=== PATIENT | female | born 1970 | race African-American/Black ===

== ENCOUNTER 2017-04-16 16:42 | Inpatient (IN) | payer OTHER ==
[~2017-04-16] VITALS: Ht 167.6 cm; Wt 80.7 kg
[~2017-04-16 16:42] MED LIST: AMLODIPINE BESY10 MG ORAL; IBUPROFEN600 MG PO; LISINOPRIL10 MG ORAL; NKM; NORCO 5-325 TA1 EACH ORAL; PROTONIX20 MG ORAL; THIAMINE HCL100 MG ORAL; VICODIN 5-5001 EACH PO; [UNRECOGNIZED DRUG - REMARK]
[2017-04-16] MEDS ORDERED: Morphine Sulfate 4mg/ml Inj IVP ONE ×2 (17:15→19:15)
[2017-04-16 18:11] LABS: BASOPHILS % (AUTO) 1.2 % (0.0-2.0); EOSINOPHILS % (AUTO) 0.1 % (0.0-3.0); MEAN CORPUSCULAR HEMOGLOBIN 33.2 PG (27.0-31.0); MEAN CORPUSCULAR HGB CONC 31.3 G/DL (32.0-36.0); MEAN CORPUSCULAR VOLUME 106 FL (80-99); MEAN PLATELET VOLUME 6.7 FL (6.5-10.1); MONOCYTES % (AUTO) 5.4 % (1.0-10.0); NEUTROPHILS % (AUTO) 81.3 % (45.0-75.0); PLATELET COUNT 225 K/UL (150-450); RED BLOOD COUNT 4.34 M/UL (4.20-5.40); RED CELL DISTRIBUTION WIDTH 16.3 % (11.6-14.8); WHITE BLOOD COUNT 7.6 K/UL (4.8-10.8)
[2017-04-16 18:20] LABS: INR 0.9 (0.9-1.1); PROTHROMBIN TIME 9.7 SEC (9.30-11.50)
[2017-04-16 18:31] LABS: ALANINE AMINOTRANSFERASE 31 U/L (3-33); ANION GAP 16 (5-15); ASPARTATE AMINO TRANSFERASE 35 U/L (5-40); CALCIUM 9.2 mg/dL (8.6-10.2); CARBON DIOXIDE 22 mEQ/L (20-30); CHLORIDE 94 mEQ/L (98-107); CREATININE 0.8 mg/dL (0.5-0.9); GLOMERULAR FILTRATION RATE > 60 mL/min (>60); HEMOLYSIS 13; POTASSIUM 3.3 mEQ/L (3.4-4.9); SODIUM 132 mEQ/L (135-145); TOTAL PROTEIN 7.8 g/dL (6.6-8.7)
[2017-04-16 18:42] LABS: LIPASE > 300 U/L (< 60)
[2017-04-16 18:53] LABS: BILIRUBIN,DIRECT 0.3 mg/dL (0.1-0.3)
[2017-04-16 19:05] VITALS: BP 126/81
[2017-04-16 19:49] LABS: APPEARANCE,URINE CLEAR; KETONES,URINE NEGATIVE (NEGATIVE); LEUKOCYTE ESTERASE ,URINE 1+ (NEGATIVE); NITRITE,URINE NEGATIVE (NEGATIVE); PH,URINE 7 (4.5-8.0); PROTEIN,URINE NEGATIVE (NEGATIVE); UROBILINOGEN,URINE NORMAL MG/DL (0.0-1.0)
[2017-04-16 20:01] LABS: BACTERIA,URINE FEW /HPF; SQUAMOUS EPITHELIAL CELL,UR MODERATE /LPF (NONE/OCC); WBC,URINE 0-2 /HPF (0 - 2)
[2017-04-16] MEDS ORDERED: AMBIEN5 MG ORAL (21:07)
[2017-04-16] MEDS ORDERED: Miralax 17gm pkt ORAL PRN (21:30)
[2017-04-16] MEDS ORDERED: Morphine Sulfate 2mg/ml Inj IVP PRN (21:30)
[2017-04-16] MEDS ORDERED: Morphine Sulfate 4mg/ml Inj IVP PRN (21:30)
[2017-04-16] MEDS ORDERED: HYDROmorphone 1mg/ml Carpuject IVP ONE (21:45)
[2017-04-16 22:10] VITALS: BP 109/72
[2017-04-16] MEDS: NS w/KCl 20mEq 1,000 ML IV SCH (22:57)
[2017-04-16] MEDS ORDERED: Hydromorphone 0.5mg/0.5ml inj IVP PRN (23:15)
[2017-04-17] VITALS (7 sets, daily range): BP systolic 96–120; BP diastolic 65–74
--- NOTE | 2017-04-17 00:04 | Emergency Room Report ---
History of Present Illness General Chief Complaint: Abdominal Pain Source: Patient Present Illness HPI The patient is a 46 old female presenting for abdominal pain. She states that she was diagnosed with pancreatitis 8 months prior for no known reason. She states that she had followup appointments but did not comply. She states that she was not having any pain until yesterday which is now described as a 10 out of 10 dull ache to the mid upper abdomen and does not radiate. No known provoking or relieving factors. She does admit to nausea but denies vomiting. She denies fever chills Allergies: Coded Allergies: No Known Allergies (Unverified , 05/13/13) Patient History Past Medical History: see triage record Pertinent Family History: none Reviewed Nursing Documentation: PMH: Agreed, PSxH: Agreed Nursing Documentation-PMH Hx Cardiac Problems: No Hx Hypertension: Yes Hx Cancer: Yes - Lung (Dad) Hx Gastrointestinal Problems: Yes Hx Neurological Problems: No Review of Systems All Other Systems: negative except mentioned in HPI Physical Exam Vital Signs Date Time Temp Pulse Resp B/P (MAP) Pulse Ox O2 Delivery O2 Flow Rate FiO2 04/16/17 16:51 98.1 124 20 126/81 97 Room Air Sp02 EP Interpretation: reviewed, normal General Appearance: no apparent distress, alert, GCS 15, non-toxic Head: normocephalic, atraumatic Eyes: bilateral eye normal inspection, bilateral eye PERRL ENT: hearing grossly normal, normal pharynx, no angioedema, normal voice Neck: full range of motion, supple/symm/no masses Respiratory: chest non-tender, lungs clear, normal breath sounds, speaking full sentences Gastrointestinal: normal inspection, normal bowel sounds, no guarding, tenderness - epigastric Rectal: deferred Musculoskeletal: back normal, gait/station normal, normal range of motion, non- tender Neurologic: alert, oriented x3, responsive, motor strength/tone normal, sensory intact, speech normal Psychiatric: judgement/insight normal, memory normal, mood/affect normal, no suicidal/homicidal ideation Skin: normal color, no rash, warm/dry, well hydrated Medical Decision Making PA Attestation Dr. Chowdhury is my supervising physician. Patient management was discussed with my supervising physician Diagnostic Impression: Primary Impression: Pancreatitis Qualified Codes: K85.90 - Acute pancreatitis without necrosis or infection, unspecified ER Course The patient is a 46 old female presenting for abdominal pain Differential diagnoses considered include but not limited to gastritis, pancreatitis, appendicitis, UTI, peptic ulcer, among others PE: Afebrile. NAD RRR Lungs CTA bilat Abd is soft. Normal BS. Non distended. TTP over epigastric region only CT and labs consistent with acute pancreatitis. Pt is given IV fluids and pain medications She will be admitted for pancreatitis Laboratory Tests Test 04/16/17 17:50 04/16/17 19:08 White Blood Count 7.6 K/UL (4.8-10.8) Red Blood Count 4.34 M/UL (4.20-5.40) Hemoglobin 14.4 G/DL (12.0-16.0) Hematocrit 45.9 % (37.0-47.0) Mean Corpuscular Volume 106 FL (80-99) H Mean Corpuscular Hemoglobin 33.2 PG (27.0-31.0) H Mean Corpuscular Hemoglobin Concent 31.3 G/DL (32.0-36.0) L Red Cell Distribution Width 16.3 % (11.6-14.8) H Platelet Count 225 K/UL (150-450) Mean Platelet Volume 6.7 FL (6.5-10.1) Neutrophils (%) (Auto) 81.3 % (45.0-75.0) H Lymphocytes (%) (Auto) 12.0 % (20.0-45.0) L Monocytes (%) (Auto) 5.4 % (1.0-10.0) Eosinophils (%) (Auto) 0.1 % (0.0-3.0) Basophils (%) (Auto) 1.2 % (0.0-2.0) Prothrombin Time 9.7 SEC (9.30-11.50) Prothrombin Time INR 0.9 (0.9-1.1) PTT 32 SEC (23-33) Sodium Level 132 mEQ/L (135-145) L Potassium Level 3.3 mEQ/L (3.4-4.9) L Chloride Level 94 mEQ/L (98-107) L Carbon Dioxide Level 22 mEQ/L (20-30) Anion Gap 16 (5-15) H Blood Urea Nitrogen 8 mg/dL (7-23) Creatinine 0.8 mg/dL (0.5-0.9) Estimate Glomerular Filtration Rate > 60 mL/min (>60) Glucose Level 124 mg/dL (74-106) H Calcium Level 9.2 mg/dL (8.6-10.2) Total Bilirubin 1.4 mg/dL (0.0-1.2) H Direct Bilirubin 0.3 mg/dL (0.1-0.3) Aspartate Amino Transferase (AST) 35 U/L (5-40) Alanine Aminotransferase (ALT) 31 U/L (3-33) Alkaline Phosphatase 108 U/L (35-104) H Total Protein 7.8 g/dL (6.6-8.7) Albumin 4.0 g/dL (3.5-5.2) Globulin 3.8 g/dL Albumin/Globulin Ratio 1.0 (1.0-2.7) Lipase > 300 U/L (< 60) H Urine Color Pale yellow Urine Appearance Clear Urine pH 7 (4.5-8.0) Urine Specific [place] 1.005 (1.005-1.035) Urine Protein Negative (NEGATIVE) Urine Glucose (UA) Negative (NEGATIVE) Urine Ketones Negative (NEGATIVE) Urine Occult Blood 1+ (NEGATIVE) H Urine Nitrite Negative (NEGATIVE) Urine Bilirubin Negative (NEGATIVE) Urine Urobilinogen Normal MG/DL (0.0-1.0) Urine Leukocyte Esterase 1+ (NEGATIVE) H Urine RBC 2-4 /HPF (0 - 2) H Urine WBC 0-2 /HPF (0 - 2) Urine Squamous Epithelial Cells Moderate /LPF (NONE/OCC) H Urine Bacteria Few /HPF (NONE) Lab Results Impression Consistent with acute pancreatitis Chest X-Ray Diagnostic Results Chest X-Ray Diagnostic Results : Chest X-Ray Ordered: Yes # of Views/Limited/Complete: 1 View Indication: Other - abd pain EP Interpretation: Yes Interpretation: no consolidation, no effusion, no pneumothorax, no acute cardiopulmonary disease Impression: No acute disease Electronically Signed by: CAMERON Landrum Scribe Text My and my supervising physician's interpretation of the chest xrays are there is no consolidation, no effusion, no acute cardiopulmonary disease, no pneumothorax CT/MRI/US Diagnostic Results CT/MRI/US Diagnostic Results : Imaging Test Ordered: CT abd/pelvis Impression acute pancreatitis Last Vital Signs Date Time Temp Pulse Resp B/P (MAP) Pulse Ox O2 Delivery O2 Flow Rate FiO2 04/16/17 22:25 98.5 04/16/17 22:15 109 20 109/72 97 Room Air Status: improved Disposition: ADMITTED INPATIENT Condition: Stable Referrals: [facility] (PCP) JESSICA HEAD Apr 17, 2017 00:04
[2017-04-17] MEDS ORDERED: Hydromorphone 0.5mg/0.5ml inj IVP PRN ×2 (00:30→10:30)
[2017-04-17] MEDS: NS w/KCl 20mEq 1,000 ML IV SCH ×3 (06:30→23:29)
[2017-04-17 08:52] LABS: BASOPHILS % (AUTO) 0.4 % (0.0-2.0); EOSINOPHILS % (AUTO) 0.4 % (0.0-3.0); LYMPHOCYTES % (AUTO) 11.4 % (20.0-45.0); MEAN CORPUSCULAR HEMOGLOBIN 33.5 PG (27.0-31.0); MEAN CORPUSCULAR HGB CONC 31.7 G/DL (32.0-36.0); MEAN CORPUSCULAR VOLUME 106 FL (80-99); MEAN PLATELET VOLUME 6.6 FL (6.5-10.1); MONOCYTES % (AUTO) 5.5 % (1.0-10.0); NEUTROPHILS % (AUTO) 82.2 % (45.0-75.0); PLATELET COUNT 202 K/UL (150-450); RED BLOOD COUNT 3.63 M/UL (4.20-5.40); RED CELL DISTRIBUTION WIDTH 16.5 % (11.6-14.8); WHITE BLOOD COUNT 6.5 K/UL (4.8-10.8)
[2017-04-17] MEDS: Heparin 5000 units/ml inj SUBQ SCH ×2 (09:00→20:10)
[2017-04-17 09:08] LABS: ALANINE AMINOTRANSFERASE 19 U/L (3-33); ANION GAP 15 (5-15); ASPARTATE AMINO TRANSFERASE 23 U/L (5-40); CALCIUM 8.3 mg/dL (8.6-10.2); CARBON DIOXIDE 22 mEQ/L (20-30); CHLORIDE 100 mEQ/L (98-107); CREATININE 0.7 mg/dL (0.5-0.9); GLOMERULAR FILTRATION RATE > 60 mL/min (>60); HEMOLYSIS 3; MAGNESIUM 1.7 mg/dL (1.7-2.5); POTASSIUM 3.7 mEQ/L (3.4-4.9); SODIUM 137 mEQ/L (135-145); TOTAL PROTEIN 6.4 g/dL (6.6-8.7)
[2017-04-17] MEDS: Docusate 100mg cap ORAL SCH ×2 (09:08→20:04)
[2017-04-17] MEDS: Pantoprazole Inj IV SCH (09:08)
[2017-04-17] MEDS ORDERED: Hydromorphone 0.5mg/0.5ml inj IVP ONE (10:55)
--- NOTE | 2017-04-17 12:08 | Diagnostic Imaging Report ---
Indication: Abdominal pain Comparison: CT chest abdomen pelvis on 10/19/2015 Technique: Contiguous helical CT images through the abdomen and pelvis was performed with intravenous contrast only. No oral contrast. Axial, coronal and sagittal reconstructions were reformatted. CT Dose: Total DLP: 860 mGycm; Total CTDI volume 16.6 Findings: There is some mild fatty infiltration of liver, unchanged. Gallbladder is normal. No radiopaque gallstones are seen. Spleen is normal. No hydronephrosis. Small renal cysts are seen. There is evidence of acute pancreatitis with inflammation changes and fluid surrounding the pancreas. No pseudocysts. No abscess. No hemorrhage. Portal vein is patent. No evidence of bowel obstruction. Appendix is normal. No free air. Atherosclerotic calcifications of the distal dominant aorta and iliac arteries are noted. In the pelvis, urinary bladder is normal. No free fluid. Small umbilical hernia is noted. Bones are unremarkable. Lung bases are clear. IMPRESSION: Acute pancreatitis Fatty liver, unchanged Multiple small renal cysts Small umbilical hernia
--- NOTE | 2017-04-17 12:18 | Diagnostic Imaging Report ---
Indication: PAIN Comparison: 10/19/2015 chest one view Findings: Single view of the chest shows a normal cardiomediastinal silhouette. Pulmonary vasculature is normal. Lung are clear. Soft tissues and osseous structures are within normal limits. Bibasilar atelectasis is noted. Impression: No acute chest disease
[2017-04-17] MEDS: Fleet's Enema 133ml RECTAL PRN (13:51)
--- NOTE | 2017-04-17 15:45 | History and Physical ---
History of Present Illness General Date patient seen: Apr 17, 2017 Time patient seen: 15:45 Reason for Hospitalization: Abdominal Pain Present Illness HPI 46y/o female with pmh of HTN, recurrent pancreatitis presents with abd pain. Pt states she was diagnosed w/ pancreatitis initially abt 1 year ago and last episode was 6 months ago. She describes epigastric and back pain, 10/10 dull pain. Associated w/ nausea, but denies vomiting. Has not been eating much 2/2 pain. Denies alcohol use or h/o gallstones. Denies f/c, dysuria, chest pain, SOB. Notes no BM since Wed. In ED, pt noted to have elevated lipase >[address] a/p showing acute pancreatitis. Also w/ ANANTH, hyponatremia and hypokalemia. Allergies: Coded Allergies: No Known Allergies (Unverified , 05/13/13) Medication History Scheduled Amlodipine Besylate* (Amlodipine Besylate*), 10 MG ORAL DAILY Hydrocodone Bit/Acetaminophen 5-325* (Slaughter 5-325*), 1 TAB ORAL Q6H Hydrocodone/Acetaminophen 5-500 (Vicodin 5-500), 1 TAB PO Q8H Ibuprofen* (Motrin*), 600 MG PO TID Lisinopril* (Lisinopril*), 20 MG ORAL DAILY, (Reported) Pantoprazole Sodium (Protonix), 20 MG ORAL EVERY 12 HOURS Thiamine Hcl (Vitamin B1*), 100 MG ORAL DAILY Scheduled PRN Zolpidem Tartrate* (Ambien*), 5 MG ORAL BEDTIME PRN for Insomnia, (Reported) Patient History History Provided By: Patient, Medical Record, PMD Healthcare decision maker Resuscitation status Full Code Advanced Directive on File Past Medical/Surgical History Past Medical/Surgical History: (1) Hypertension (2) Pancreatitis Family History Family History: Patient reports no known family medical history. Social History Social History: (1) Cigar smoker Review of Systems Constitutional: Reports: weakness Eye: Reports: no symptoms ENT: Reports: no symptoms Respiratory: Reports: no symptoms Cardiovascular: Reports: no symptoms Gastrointestinal: Reports: abdominal pain, constipation, nausea Genitourinary: Reports: no symptoms Musculoskeletal: Reports: no symptoms Skin: Reports: no symptoms Psychiatric: Reports: no symptoms Neurological: Reports: no symptoms Endocrine: Reports: no symptoms Hematologic/Lymphatic: Reports: no symptoms Physical Exam Physical Exam Narrative General: alert, cooperative, no distress, appears stated age Head: normocephalic, without obvious abnormality, atraumatic Eyes: conjunctivae/corneas clear. PERRL, EOM's intact Throat: lips, mucosa, and tongue normal. MMM Neck: supple, symmetrical, trachea midline, and no JVD Lungs: clear to auscultation bilaterally Heart: regular rate and rhythm, S1, S2 normal, no murmur, click, rub or gallop Abdomen: soft, +TTP of epigastric pain, on-distended, bowel sounds normal; no masses or organomegaly Extremities: extremities normal, atraumatic, no cyanosis or edema Pulses: 2+ and symmetric Skin: skin color, texture, turgor normal; no rashes or lesions Neurologic: grossly normal, no focal deficits Last 24 Hour Vital Signs Date Time Temp Pulse Resp B/P (MAP) Pulse Ox O2 Delivery O2 Flow Rate FiO2 04/17/17 12:00 98.1 111 18 106/71 96 Room Air 04/17/17 09:00 98.1 112 19 117/67 96 Room Air 04/17/17 08:02 98.2 112 20 117/73 97 Room Air 04/17/17 04:00 98.4 100 20 96/65 97 Room Air 04/17/17 00:54 98.2 109 19 99/65 98 Room Air 04/16/17 22:25 98.5 04/16/17 22:15 98.5 109 20 109/72 97 Room Air 04/16/17 22:10 98.5 109 20 109/72 97 Room Air 04/16/17 19:18 98.1 04/16/17 19:18 98.1 04/16/17 19:05 98.1 72 20 126/81 97 Room Air 04/16/17 16:51 98.1 124 20 126/81 97 Room Air Intake and Output 04/17/17 04/18/17 19:00 07:00 Intake Total 1000 ml Balance 1000 ml IV Total 1000 ml Laboratory Tests Test 04/16/17 17:50 04/16/17 19:08 04/17/17 07:00 White Blood Count 7.6 K/UL (4.8-10.8) 6.5 K/UL (4.8-10.8) Red Blood Count 4.34 M/UL (4.20-5.40) 3.63 M/UL (4.20-5.40) L Hemoglobin 14.4 G/DL (12.0-16.0) 12.2 G/DL (12.0-16.0) Hematocrit 45.9 % (37.0-47.0) 38.4 % (37.0-47.0) Mean Corpuscular Volume 106 FL (80-99) H 106 FL (80-99) H Mean Corpuscular Hemoglobin 33.2 PG (27.0-31.0) H 33.5 PG (27.0-31.0) H Mean Corpuscular Hemoglobin Concent 31.3 G/DL (32.0-36.0) L 31.7 G/DL (32.0-36.0) L Red Cell Distribution Width 16.3 % (11.6-14.8) H 16.5 % (11.6-14.8) H Platelet Count 225 K/UL (150-450) 202 K/UL (150-450) Mean Platelet Volume 6.7 FL (6.5-10.1) 6.6 FL (6.5-10.1) Neutrophils (%) (Auto) 81.3 % (45.0-75.0) H 82.2 % (45.0-75.0) H Lymphocytes (%) (Auto) 12.0 % (20.0-45.0) L 11.4 % (20.0-45.0) L Monocytes (%) (Auto) 5.4 % (1.0-10.0) 5.5 % (1.0-10.0) Eosinophils (%) (Auto) 0.1 % (0.0-3.0) 0.4 % (0.0-3.0) Basophils (%) (Auto) 1.2 % (0.0-2.0) 0.4 % (0.0-2.0) Prothrombin Time 9.7 SEC (9.30-11.50) Prothromb Time International Ratio 0.9 (0.9-1.1) Activated Partial Thromboplast Time 32 SEC (23-33) Sodium Level 132 mEQ/L (135-145) L 137 mEQ/L (135-145) Potassium Level 3.3 mEQ/L (3.4-4.9) L 3.7 mEQ/L (3.4-4.9) Chloride Level 94 mEQ/L (98-107) L 100 mEQ/L (98-107) Carbon Dioxide Level 22 mEQ/L (20-30) 22 mEQ/L (20-30) Anion Gap 16 (5-15) H 15 (5-15) Blood Urea Nitrogen 8 mg/dL (7-23) 10 mg/dL (7-23) Creatinine 0.8 mg/dL (0.5-0.9) 0.7 mg/dL (0.5-0.9) Estimat Glomerular Filtration Rate > 60 mL/min (>60) > 60 mL/min (>60) Glucose Level 124 mg/dL (74-106) H 84 mg/dL (74-106) Calcium Level 9.2 mg/dL (8.6-10.2) 8.3 mg/dL (8.6-10.2) L Total Bilirubin 1.4 mg/dL (0.0-1.2) H 0.8 mg/dL (0.0-1.2) Direct Bilirubin 0.3 mg/dL (0.1-0.3) Aspartate Amino Transf (AST/SGOT) 35 U/L (5-40) 23 U/L (5-40) Alanine Aminotransferase (ALT/SGPT) 31 U/L (3-33) 19 U/L (3-33) Alkaline Phosphatase 108 U/L (35-104) H 79 U/L (35-104) Total Protein 7.8 g/dL (6.6-8.7) 6.4 g/dL (6.6-8.7) L Albumin 4.0 g/dL (3.5-5.2) 3.2 g/dL (3.5-5.2) L Globulin 3.8 g/dL 3.2 g/dL Albumin/Globulin Ratio 1.0 (1.0-2.7) 1.0 (1.0-2.7) Lipase > 300 U/L (< 60) H Urine Color Pale yellow Urine Appearance Clear Urine pH 7 (4.5-8.0) Urine Specific [place] 1.005 (1.005-1.035) Urine Protein Negative (NEGATIVE) Urine Glucose (UA) Negative (NEGATIVE) Urine Ketones Negative (NEGATIVE) Urine Occult Blood 1+ (NEGATIVE) H Urine Nitrite Negative (NEGATIVE) Urine Bilirubin Negative (NEGATIVE) Urine Urobilinogen Normal MG/DL (0.0-1.0) Urine Leukocyte Esterase 1+ (NEGATIVE) H Urine RBC 2-4 /HPF (0 - 2) H Urine WBC 0-2 /HPF (0 - 2) Urine Squamous Epithelial Cells Moderate /LPF (NONE/OCC) H Urine Bacteria Few /HPF (NONE) Magnesium Level 1.7 mg/dL (1.7-2.5) Height (Feet): 5 Height (Inches): 6.00 Weight (Pounds): 178 Medications Current Medications Medications (Trade) Dose Ordered Sig/Kash Route PRN Reason Start Time Stop Time Status Last Admin Dose Admin Acetaminophen (Tylenol) 650 mg Q4H PRN ORAL Mild Pain (Pain Scale 1-3) 04/16/17 21:30 05/16/17 21:29 Bisacodyl (Dulcolax) 10 mg DAILYPRN PRN RECTAL Constipation 04/17/17 10:30 05/17/17 10:29 04/17/17 11:04 Dextrose (Dextrose 50%) STAT PRN IV Hypoglycemia 04/16/17 21:30 05/16/17 21:29 Diphenhydramine HCl (Benadryl) 25 mg Q6H PRN ORAL Itching/Pruritis 04/16/17 21:30 05/16/17 21:29 04/16/17 23:24 Docusate Sodium (Colace) 100 mg EVERY 12 HOURS ORAL 04/17/17 09:00 05/17/17 08:59 04/17/17 09:08 Heparin Sodium (Porcine) (Heparin 5000 units/ml) 5,000 units EVERY 12 HOURS SUBQ 04/17/17 09:00 05/17/17 08:59 Hydromorphone HCl (Dilaudid) 1 mg Q4H PRN IVP Moderate Pain (Pain Scale 4-6) 04/17/17 10:30 04/24/17 10:29 Hydromorphone HCl (Dilaudid) 2 mg Q4H PRN IVP Severe Pain (Pain Scale 7-10) 04/17/17 10:30 04/24/17 10:29 04/17/17 15:31 Ondansetron HCl (Zofran) 4 mg Q6H PRN IVP Nausea & Vomiting 04/16/17 21:30 05/16/17 21:29 04/17/17 10:20 Pantoprazole (Protonix) 40 mg DAILY IV 04/17/17 09:00 05/17/17 08:59 04/17/17 09:08 Polyethylene Glycol (Miralax) 17 gm HSPRN PRN ORAL Constipation 04/16/17 21:30 05/16/17 21:29 04/17/17 09:08 Sodium Chloride 1,000 ml @ 125 mls/hr Q8H IV 04/16/17 23:00 05/16/17 22:59 04/17/17 15:33 Sodium Phosphate (Fleet's Sodium Phosl Enema) 133 ml DAILYPRN PRN RECTAL Constipation 04/17/17 11:15 05/17/17 11:14 04/17/17 13:51 Assessment/Plan Problem List: (1) Acute recurrent pancreatitis ICD Codes: K85.90 - Acute pancreatitis without necrosis or infection, unspecified SNOMED: 686998780 (2) ANANTH (acute kidney injury) ICD Codes: N17.9 - Acute kidney failure, unspecified SNOMED: 59597924 (3) Hyponatremia ICD Codes: E87.1 - Hypo-osmolality and hyponatremia SNOMED: 91101964 (4) Hypokalemia ICD Codes: E87.6 - Hypokalemia SNOMED: 15588384 Status: stable Assessment/Plan Unclear etiology for acute pancreatitis. D/w pt's PCP who states pt with episodes of pancreatitis of unclear etiology Admit inpt GI consulted NPO except meds w/ sips IVFs w/ KCl Trend lytes, Cr closely Check U/S abd Trend LFTs Pain control, nausea control, bowel regimen Hold home losartan given ANANTH FULL CODE D/w pt, RN, PCP regarding mgmt and dispo Justin Schwarz M.D. Apr 17, 2017 15:45
[2017-04-17] MEDS ORDERED: Milk of Magnesia 30ml Ud ORAL PRN (17:45)
--- NOTE | 2017-04-17 21:53 | General Progress Note ---
Assessment/Plan Assessment/Plan GI Consult Dictated Recurrent pancreatitis Will check MRCP Thank you Subjective Allergies: Coded Allergies: No Known Allergies (Unverified , 05/13/13) Objective Last 24 Hour Vital Signs Date Time Temp Pulse Resp B/P (MAP) Pulse Ox O2 Delivery O2 Flow Rate FiO2 04/17/17 20:00 99.7 89 21 114/65 95 Room Air 04/17/17 16:00 98.9 110 18 120/74 98 Room Air 04/17/17 12:00 98.1 111 18 106/71 96 Room Air 04/17/17 09:00 98.1 112 19 117/67 96 Room Air 04/17/17 08:02 98.2 112 20 117/73 97 Room Air 04/17/17 04:00 98.4 100 20 96/65 97 Room Air 04/17/17 00:54 98.2 109 19 99/65 98 Room Air 04/16/17 22:25 98.5 04/16/17 22:15 98.5 109 20 109/72 97 Room Air 04/16/17 22:10 98.5 109 20 109/72 97 Room Air Intake and Output 04/17/17 04/18/17 19:00 07:00 Intake Total 1375 ml 325 ml Balance 1375 ml 325 ml IV Total 1375 ml 325 ml Laboratory Tests 04/17/17 07:00: White Blood Count 6.5, Red Blood Count 3.63L, Hemoglobin 12.2, Hematocrit 38.4, Mean Corpuscular Volume 106H, Mean Corpuscular Hemoglobin 33.5H, Mean Corpuscular Hemoglobin Concent 31.7L, Red Cell Distribution Width 16.5H, Platelet Count 202, Mean Platelet Volume 6.6, Neutrophils (%) (Auto) 82.2H, Lymphocytes (%) (Auto) 11.4L, Monocytes (%) (Auto) 5.5, Eosinophils (%) (Auto) 0.4, Basophils (%) (Auto) 0.4, Sodium Level 137, Potassium Level 3.7, Chloride Level 100, Carbon Dioxide Level 22, Anion Gap 15, Blood Urea Nitrogen 10, Creatinine 0.7, Estimat Glomerular Filtration Rate > 60, Glucose Level 84, Calcium Level 8.3L, Magnesium Level 1.7, Total Bilirubin 0.8, Aspartate Amino Transf (AST/SGOT) 23, Alanine Aminotransferase (ALT/SGPT) 19, Alkaline Phosphatase 79, Total Protein 6.4L, Albumin 3.2L, Globulin 3.2, Albumin/ Globulin Ratio 1.0, Lipase 662H Height (Feet): 5 Height (Inches): 6.00 Weight (Pounds): 178 GUICHO KWOK Apr 17, 2017 21:53
[2017-04-18] VITALS: BP 106/67
[2017-04-18 04:00] VITALS: BP 111/73
[2017-04-18] MEDS: NS w/KCl 20mEq 1,000 ML IV SCH ×3 (06:11→21:52)
[2017-04-18 08:03] LABS: BASOPHILS % (AUTO) 0.9 % (0.0-2.0); EOSINOPHILS % (AUTO) 0.5 % (0.0-3.0); LYMPHOCYTES % (AUTO) 13.6 % (20.0-45.0); MEAN CORPUSCULAR HEMOGLOBIN 33.7 PG (27.0-31.0); MEAN CORPUSCULAR HGB CONC 31.4 G/DL (32.0-36.0); MEAN CORPUSCULAR VOLUME 107 FL (80-99); MONOCYTES % (AUTO) 6.4 % (1.0-10.0); NEUTROPHILS % (AUTO) 78.6 % (45.0-75.0); PLATELET COUNT 182 K/UL (150-450); RED CELL DISTRIBUTION WIDTH 16.8 % (11.6-14.8); WHITE BLOOD COUNT 8.6 K/UL (4.8-10.8)
[2017-04-18] MEDS: Pantoprazole Inj IV SCH (08:40)
[2017-04-18] MEDS: Miralax 17gm pkt ORAL SCH (08:40)
[2017-04-18] MEDS: Docusate 100mg cap ORAL SCH ×2 (08:40→20:18)
[2017-04-18 08:41] LABS: ALANINE AMINOTRANSFERASE 16 U/L (3-33); ALBUMIN/GLOBULIN RATIO 0.9 (1.0-2.7); ANION GAP 14 (5-15); ASPARTATE AMINO TRANSFERASE 35 U/L (5-40); CALCIUM 8.4 mg/dL (8.6-10.2); CARBON DIOXIDE 19 mEQ/L (20-30); CHLORIDE 104 mEQ/L (98-107); CREATININE 0.5 mg/dL (0.5-0.9); GLOMERULAR FILTRATION RATE > 60 mL/min (>60); HEMOLYSIS 3; POTASSIUM 3.6 mEQ/L (3.4-4.9); SODIUM 137 mEQ/L (135-145); TOTAL PROTEIN 6.1 g/dL (6.6-8.7)
[2017-04-18] MEDS: Heparin 5000 units/ml inj SUBQ SCH ×2 (08:43→20:21)
--- NOTE | 2017-04-18 09:47 | Diagnostic Imaging Report ---
Indication: Abdominal pain Comparison: Abdominal ultrasound 10/19/2015 Findings: Ultrasound evaluation of the abdomen was performed. There is diffuse fatty infiltration of liver. Liver is normal in size measuring 17.1 cm. Portal vein is patent. No focal lesions in the liver. Gallbladder appears normal. No gallstones identified. No gallbladder wall thickening or pericholecystic fluid. Common bile duct is normal at 4 mm. No intrahepatic bile duct dilation present. Most of the pancreas is obscured. There is a small amount of fluid seen adjacent to the pancreas. Patient has known acute pancreatitis as seen on recent CT abdomen pelvis 04/16/2017. Spleen is normal measuring 7.9 cm. Kidneys are normal without hydronephrosis. Impression: Fatty liver. Gallbladder is normal. No gallstones. No bile duct dilation present. Small amount of fluid seen adjacent to the pancreas consistent with acute pancreatitis. Most of the pancreas is obscured.
[2017-04-18 15:53] VITALS: BP 116/78
[2017-04-18] MEDS: Fleet's Enema 133ml RECTAL PRN (16:54)
--- NOTE | 2017-04-18 18:49 | General Progress Note ---
Assessment/Plan Problem List: (1) Constipation ICD Codes: K59.00 - Constipation, unspecified SNOMED: 27719917 (2) Acute blood loss anemia ICD Codes: D62 - Acute posthemorrhagic anemia SNOMED: 712483805 (3) ANANTH (acute kidney injury) ICD Codes: N17.9 - Acute kidney failure, unspecified SNOMED: 33994220 (4) Acute recurrent pancreatitis ICD Codes: K85.90 - Acute pancreatitis without necrosis or infection, unspecified SNOMED: 695936904 (5) Hyponatremia ICD Codes: E87.1 - Hypo-osmolality and hyponatremia SNOMED: 45649765 (6) Hypokalemia ICD Codes: E87.6 - Hypokalemia SNOMED: 39297482 (7) Cigar smoker ICD Codes: F17.290 - Nicotine dependence, other tobacco product, uncomplicated SNOMED: 57997305 Status: doing well, stable Assessment/Plan Unclear etiology for acute pancreatitis. MRCP per GI. GI consulted. Appreciate recs NPO except meds w/ sips. IVFs w/ KCl Trend lytes, Cr closely U/S abd with fatty liver but no gallbladder disease or bile duct dilatation Elevated LFTs - resolved. Trend lipase, trending down. Pain control, nausea control, bowel regimen Hold home losartan given ANANTH Hgb downtrending. Check stool OB. F/u anemia panel. FULL CODE D/w pt, RN regarding mgmt and dispo Subjective Date patient seen: Apr 18, 2017 Allergies: Coded Allergies: No Known Allergies (Unverified , 05/13/13) Subjective No acute events o/n Abdominal pain improving. Denies nausea, vomiting. Seen by GI Abdominal US showing fatty liver but gallbladder and gallbladder duct wnl +bowel movement. Hgb downtrending. Denies hematechezia, hematemesis. Objective Last 24 Hour Vital Signs Date Time Temp Pulse Resp B/P (MAP) Pulse Ox O2 Delivery O2 Flow Rate FiO2 04/18/17 15:53 98.4 107 20 116/78 96 Room Air 04/18/17 04:00 98.2 100 18 111/73 95 Room Air 04/18/17 00:00 99.1 98 20 106/67 94 Room Air 04/17/17 20:00 99.7 89 21 114/65 95 Room Air Laboratory Tests Test 04/18/17 06:55 White Blood Count 8.6 K/UL (4.8-10.8) Red Blood Count 3.20 M/UL (4.20-5.40) L Hemoglobin 10.8 G/DL (12.0-16.0) L Hematocrit 34.3 % (37.0-47.0) L Mean Corpuscular Volume 107 FL (80-99) H Mean Corpuscular Hemoglobin 33.7 PG (27.0-31.0) H Mean Corpuscular Hemoglobin Concent 31.4 G/DL (32.0-36.0) L Red Cell Distribution Width 16.8 % (11.6-14.8) H Platelet Count 182 K/UL (150-450) Mean Platelet Volume 7.0 FL (6.5-10.1) Neutrophils (%) (Auto) 78.6 % (45.0-75.0) H Lymphocytes (%) (Auto) 13.6 % (20.0-45.0) L Monocytes (%) (Auto) 6.4 % (1.0-10.0) Eosinophils (%) (Auto) 0.5 % (0.0-3.0) Basophils (%) (Auto) 0.9 % (0.0-2.0) Sodium Level 137 mEQ/L (135-145) Potassium Level 3.6 mEQ/L (3.4-4.9) Chloride Level 104 mEQ/L (98-107) Carbon Dioxide Level 19 mEQ/L (20-30) L Anion Gap 14 (5-15) Blood Urea Nitrogen 5 mg/dL (7-23) L Creatinine 0.5 mg/dL (0.5-0.9) Estimat Glomerular Filtration Rate > 60 mL/min (>60) Glucose Level 54 mg/dL (74-106) L Calcium Level 8.4 mg/dL (8.6-10.2) L Total Bilirubin 0.9 mg/dL (0.0-1.2) Aspartate Amino Transf (AST/SGOT) 35 U/L (5-40) Alanine Aminotransferase (ALT/SGPT) 16 U/L (3-33) Alkaline Phosphatase 112 U/L (35-104) H Total Protein 6.1 g/dL (6.6-8.7) L Albumin 2.9 g/dL (3.5-5.2) L Globulin 3.2 g/dL Albumin/Globulin Ratio 0.9 (1.0-2.7) L Lipase 166 U/L (< 60) H Human Chorionic Gonadotropin, Qual Negative Intake and Output 04/18/17 04/19/17 19:00 07:00 Intake Total 1125 ml Balance 1125 ml IV Total 1125 ml # Voids 6 # Bowel Movements 2 Laboratory Tests 04/18/17 06:55: White Blood Count 8.6, Red Blood Count 3.20L, Hemoglobin 10.8L, Hematocrit 34.3L , Mean Corpuscular Volume 107H, Mean Corpuscular Hemoglobin 33.7H, Mean Corpuscular Hemoglobin Concent 31.4L, Red Cell Distribution Width 16.8H, Platelet Count 182, Mean Platelet Volume 7.0, Neutrophils (%) (Auto) 78.6H, Lymphocytes (%) (Auto) 13.6L, Monocytes (%) (Auto) 6.4, Eosinophils (%) (Auto) 0.5, Basophils (%) (Auto) 0.9, Sodium Level 137, Potassium Level 3.6, Chloride Level 104, Carbon Dioxide Level 19L, Anion Gap 14, Blood Urea Nitrogen 5L, Creatinine 0.5, Estimat Glomerular Filtration Rate > 60, Glucose Level 54L, Calcium Level 8.4L, Total Bilirubin 0.9, Aspartate Amino Transf (AST/SGOT) 35, Alanine Aminotransferase (ALT/SGPT) 16, Alkaline Phosphatase 112H, Total Protein 6.1L, Albumin 2.9L, Globulin 3.2, Albumin/Globulin Ratio 0.9L, Lipase 166H, Human Chorionic Gonadotropin, Qual Negative Height (Feet): 5 Height (Inches): 6.00 Weight (Pounds): 178 General Appearance: no apparent distress, alert EENT: PERRL/EOMI Neck: non-tender, normal alignment Cardiovascular: normal peripheral pulses, normal rate, regular rhythm Respiratory/Chest: chest wall non-tender, lungs clear, normal breath sounds Abdomen: normal bowel sounds, non tender, soft, distended Extremities: normal range of motion Neurologic: cyber legal advisor II-XII grossly normal, no motor/sensory deficits, alert, oriented x 3 Skin: normal pigmentation, warm/dry Janel Barbour N.P. Apr 18, 2017 18:49
--- NOTE | 2017-04-18 19:00 | Consultation ---
DATE OF CONSULTATION: 04/17/2017 GASTROLOGY CONSULTATION CONSULTING PHYSICIAN: Yuridia Menard M.D. Chief Complaint: I was asked to see this patient by Dr. Cassandra Vidales for evaluation of abdominal pain and pancreatitis. History Of Present Illness: The patient is a 46-year-old woman with recurrent episodes of pancreatitis who comes in with two-day history of severe abdominal pain. She does not drink alcohol and has had several episodes of pancreatitis especially last year. She has had 9 months period where she had no pancreatitis until this admission. The patient still has her gallbladder and was told there is no gallstones. She does not drink alcohol. She also has not had bowel movement for few days. CT scan of the abdomen and pelvis done yesterday that showed some fatty liver, normal gallbladder, no gallstones, and evidence of acute pancreatitis. PAST MEDICAL HISTORY: History of hypertension. MEDICATIONS: As an outpatient include amlodipine. FAMILY HISTORY: Noncontributory. SOCIAL HISTORY: The patient does not smoke or drink alcohol. REVIEW OF SYSTEMS: Otherwise negative. PHYSICAL EXAMINATION: General: The patient is a pleasant -[place] woman, seen in her room. HEENT: Normocephalic and atraumatic. Sclerae anicteric. Oropharynx clear. NECK: Supple. CHEST: Clear to auscultation. CARDIOVASCULAR: Regular rhythm and rate. Abdomen: Soft but tender to palpation especially in the epigastric area with some voluntary guarding but no rebound, no masses. EXTREMITIES: No edema. NEUROLOGIC: Grossly nonfocal. LABORATORY DATA: Noted. Assessment: This patient presents with acute abdominal pain with elevated lipase consistent with acute pancreatitis. This is also shown on her CT scan. The patient should be managed conservatively at this time and should be kept NPO with IV fluids and pain control. MRCP of the pancreas should be done to rule out any common bile duct stones, which were not seen on CT scan. The patient should be advised to refrain from any alcohol use. RECOMMENDATIONS: 1. NPO. 2. IV fluids. 3. Pain control. 4. Follow laboratory parameters and exam. 5. Check MRCP of the pancreas and biliary tree. Thank you for asking me to participate in the care of this patient. Yuridia Menard M.D. DR: LYUBOV JOB#: [id number] CC:
[2017-04-18 19:10] LABS: MAGNESIUM 1.7 mg/dL (1.7-2.5)
[2017-04-18 19:51] VITALS: BP 125/81
[2017-04-19] VITALS: BP 118/70
[2017-04-19] MEDS: NS w/KCl 20mEq 1,000 ML IV SCH ×2 (04:42→17:00)
[2017-04-19 04:49] VITALS: BP 112/70
[2017-04-19 06:35] LABS: BASOPHILS % (AUTO) 0.5 % (0.0-2.0); EOSINOPHILS % (AUTO) 0.5 % (0.0-3.0); LYMPHOCYTES % (AUTO) 9.8 % (20.0-45.0); MEAN CORPUSCULAR HEMOGLOBIN 35.1 PG (27.0-31.0); MEAN CORPUSCULAR HGB CONC 32.6 G/DL (32.0-36.0); MEAN CORPUSCULAR VOLUME 108 FL (80-99); MEAN PLATELET VOLUME 7.4 FL (6.5-10.1); MONOCYTES % (AUTO) 8.4 % (1.0-10.0); NEUTROPHILS % (AUTO) 80.8 % (45.0-75.0); PLATELET COUNT 195 K/UL (150-450); RED BLOOD COUNT 3.01 M/UL (4.20-5.40); RED CELL DISTRIBUTION WIDTH 16.7 % (11.6-14.8); WHITE BLOOD COUNT 10.1 K/UL (4.8-10.8)
[2017-04-19 07:18] LABS: ANION GAP 17 (5-15); CALCIUM 8.8 mg/dL (8.6-10.2); CARBON DIOXIDE 17 mEQ/L (20-30); CHLORIDE 101 mEQ/L (98-107); CREATININE 0.5 mg/dL (0.5-0.9); GLOMERULAR FILTRATION RATE > 60 mL/min (>60); HEMOLYSIS 0; LIPASE 76 U/L (< 60); POTASSIUM 4.2 mEQ/L (3.4-4.9); SODIUM 135 mEQ/L (135-145)
--- NOTE | 2017-04-19 07:18 | General Progress Note ---
Assessment/Plan Assessment/Plan Assessment - recurrent pancreatitis - still with pain and TTP - HTN - obesity and fatty liver - macrocytic MCV with normal B12 Recommendations - continue NPO - IVF - Pain control - MRCP (Delayed entry - encounter date 04/18/17) Subjective Allergies: Coded Allergies: No Known Allergies (Unverified , 05/13/13) Subjective Above noted feels better still with abd pain, but less d/w patient re plan of care Objective Last 24 Hour Vital Signs Date Time Temp Pulse Resp B/P (MAP) Pulse Ox O2 Delivery O2 Flow Rate FiO2 04/19/17 04:49 98.4 100 19 112/70 99 Room Air 04/19/17 00:00 98.4 90 19 118/70 96 Room Air 04/18/17 19:51 98.3 100 22 125/81 95 Room Air 04/18/17 15:53 98.4 107 20 116/78 96 Room Air Laboratory Tests 04/18/17 19:00: Stool Occult Blood [Pending] 04/19/17 06:00: White Blood Count [Pending], Red Blood Count [Pending], Hemoglobin [Pending], Hematocrit [Pending], Mean Corpuscular Volume [Pending], Mean Corpuscular Hemoglobin [Pending], Mean Corpuscular Hemoglobin Concent [Pending], Red Cell Distribution Width [Pending], Platelet Count [Pending], Mean Platelet Volume [ Pending], Neutrophils (%) (Auto) [Pending], Lymphocytes (%) (Auto) [Pending], Monocytes (%) (Auto) [Pending], Eosinophils (%) (Auto) [Pending], Basophils (%) (Auto) [Pending], Sodium Level [Pending], Potassium Level [Pending], Chloride Level [Pending], Carbon Dioxide Level [Pending], Blood Urea Nitrogen [Pending], Creatinine [Pending], Estimat Glomerular Filtration Rate [Pending], Glucose Level [Pending], Calcium Level [Pending], Lipase [Pending] Height (Feet): 5 Height (Inches): 6.00 Weight (Pounds): 178 Objective WDWN AA woman NCAT supple CTA RRR Soft ND, (+) Epigastric TTP (less TTP than yesterday) no edema non focal GUICHO KWOK Apr 19, 2017 07:18
[2017-04-19 08:00] VITALS: BP 116/76
[2017-04-19] MEDS: Heparin 5000 units/ml inj SUBQ SCH ×2 (08:03→20:30)
[2017-04-19] MEDS: Pantoprazole Inj IV SCH (08:03)
[2017-04-19] MEDS: Miralax 17gm pkt ORAL SCH (08:04)
[2017-04-19] MEDS: Docusate 100mg cap ORAL SCH ×2 (08:04→20:28)
--- NOTE | 2017-04-19 14:07 | Diagnostic Imaging Report ---
Indication: Acute pancreatitis Technique: MRI of the abdomen was performed in a 1.5 Eileen magnet. Pulse sequences obtained include coronal and axial T2 single shot fast spin echo breathhold and respiratory gated coronal T2 3-D M.R.C.P.; this data set was displayed in different projections or MIPs. In addition, multiple coronal oblique thin T2 weighted, fat saturated SE sequences obtained through the CBD. T1 gradient echo in and out of phase. In addition pre-and post coronal and axial T1 fame sequences obtained. Comparison: CT abdomen pelvis 04/16/17 Findings: There is no biliary ductal dilatation identified. No evidence of choledocholithiasis. Gallbladder is unremarkable in appearance. There is a moderate degree of peripancreatic T2 hyperintense signal consistent with inflammation and fluid especially in the left anterior pararenal space adjacent to the pancreatic body and tail. Fluid extends down the left paracolic gutter. There is left basilar atelectasis present. Small cysts are present within the kidneys. Pancreas enhances normally after gadolinium. Impression: Acute pancreatitis. No evidence of choledocholithiasis or biliary ductal obstruction. Unremarkable gallbladder. Left basal atelectasis Small bilateral renal cysts
--- NOTE | 2017-04-19 14:52 | GI Progress Note ---
Assessment/Plan Problems: (1) Constipation ICD Codes: K59.00 - Constipation, unspecified SNOMED: 67582153 (2) Acute blood loss anemia ICD Codes: D62 - Acute posthemorrhagic anemia SNOMED: 409404427 (3) Pancreatitis ICD Codes: K85.9 - Acute pancreatitis, unspecified SNOMED: 16896123 Qualifiers: Qualified Codes: K85.90 - Acute pancreatitis without necrosis or infection, unspecified Status: stable Status Narrative Discussed with Dr. Aguila. Assessment/Plan Assessment - recurrent pancreatitis - still with pain and TTP - HTN - obesity and fatty liver - macrocytic MCV with normal B12 - MRCP reviewed >> Acute pancreatitis. No evidence of choledocholithiasis or biliary ductal obstruction. iron deficient >> venofer Recommendations CLD, ok to adv to low fat diet if tolerates pain mgmt ordered lipid panel avoid NSAIDs cont ppi fu labs Subjective Subjective abdominal pain improving hungry Objective Last 24 Hour Vital Signs Date Time Temp Pulse Resp B/P (MAP) Pulse Ox O2 Delivery O2 Flow Rate FiO2 04/19/17 08:00 98.2 104 17 116/76 97 Room Air 04/19/17 04:49 98.4 100 19 112/70 99 Room Air 04/19/17 00:00 98.4 90 19 118/70 96 Room Air 04/18/17 19:51 98.3 100 22 125/81 95 Room Air 04/18/17 15:53 98.4 107 20 116/78 96 Room Air Laboratory Tests Test 04/18/17 19:00 04/19/17 06:00 Stool Occult Blood Negative (NEGATIVE) White Blood Count 10.1 K/UL (4.8-10.8) Red Blood Count 3.01 M/UL (4.20-5.40) L Hemoglobin 10.5 G/DL (12.0-16.0) L Hematocrit 32.3 % (37.0-47.0) L Mean Corpuscular Volume 108 FL (80-99) H Mean Corpuscular Hemoglobin 35.1 PG (27.0-31.0) H Mean Corpuscular Hemoglobin Concent 32.6 G/DL (32.0-36.0) Red Cell Distribution Width 16.7 % (11.6-14.8) H Platelet Count 195 K/UL (150-450) Mean Platelet Volume 7.4 FL (6.5-10.1) Neutrophils (%) (Auto) 80.8 % (45.0-75.0) H Lymphocytes (%) (Auto) 9.8 % (20.0-45.0) L Monocytes (%) (Auto) 8.4 % (1.0-10.0) Eosinophils (%) (Auto) 0.5 % (0.0-3.0) Basophils (%) (Auto) 0.5 % (0.0-2.0) Sodium Level 135 mEQ/L (135-145) Potassium Level 4.2 mEQ/L (3.4-4.9) Chloride Level 101 mEQ/L (98-107) Carbon Dioxide Level 17 mEQ/L (20-30) L Anion Gap 17 (5-15) H Blood Urea Nitrogen 3 mg/dL (7-23) L Creatinine 0.5 mg/dL (0.5-0.9) Estimat Glomerular Filtration Rate > 60 mL/min (>60) Glucose Level 46 mg/dL (74-106) L Calcium Level 8.8 mg/dL (8.6-10.2) Lipase 76 U/L (< 60) H Height (Feet): 5 Height (Inches): 6.00 Weight (Pounds): 178 General Appearance: no apparent distress, alert Cardiovascular: normal rate Respiratory/Chest: normal breath sounds, no respiratory distress Abdominal Exam: normal bowel sounds, non tender, soft Extremities: normal range of motion I[employer] N.P. Apr 19, 2017 14:52
[2017-04-19 16:00] VITALS: BP 134/75
[2017-04-19 16:03] VITALS: BP 125/75
--- NOTE | 2017-04-19 16:11 | General Progress Note ---
Assessment/Plan Problem List: (1) Acute recurrent pancreatitis ICD Codes: K85.90 - Acute pancreatitis without necrosis or infection, unspecified SNOMED: 655983342 (2) ANANTH (acute kidney injury) ICD Codes: N17.9 - Acute kidney failure, unspecified SNOMED: 03070314 (3) Hyponatremia ICD Codes: E87.1 - Hypo-osmolality and hyponatremia SNOMED: 98355040 (4) Hypokalemia ICD Codes: E87.6 - Hypokalemia SNOMED: 11027756 Status: stable Assessment/Plan Unclear etiology for acute pancreatitis GI consulted. Appreciate recs CLD --> advance to low fat for dinner IVFs w/ KCl Trend lytes, Cr closely U/S abd with fatty liver but no gallbladder disease or bile duct dilatation MRI abd w/ acute pancreatitis but no evidence of choledocholithiasis or biliary ductal obstruction Elevated LFTs - resolved. Trend lipase, trending down. Pain control, nausea control, bowel regimen Hold home losartan given ANANTH Iron panel w/ e/o Fe def anemia--venofer ordered D/C home in AM if tolerating PO FULL CODE D/w pt, RN regarding mgmt and dispo Subjective Date patient seen: Apr 19, 2017 Time patient seen: 16:07 ROS Limited/Unobtainable: No Constitutional: Reports: no symptoms HEENT: Reports: no symptoms Cardiovascular: Reports: no symptoms Respiratory: Reports: no symptoms Gastrointestinal/Abdominal: Reports: abdominal pain, nausea Genitourinary: Reports: no symptoms Neurologic/Psychiatric: Reports: no symptoms Endocrine: Reports: no symptoms Allergies: Coded Allergies: No Known Allergies (Unverified , 05/13/13) Subjective No acute o/n events U/S abd w/ fatty liver, no GB disease MRI abd w/ acute pancreatitis, otherwise unremarkable Pain controlled, Denies f/c, n/v, d/c, chest pain, SOB Objective Last 24 Hour Vital Signs Date Time Temp Pulse Resp B/P (MAP) Pulse Ox O2 Delivery O2 Flow Rate FiO2 04/19/17 08:00 98.2 104 17 116/76 97 Room Air 04/19/17 04:49 98.4 100 19 112/70 99 Room Air 04/19/17 00:00 98.4 90 19 118/70 96 Room Air 04/18/17 19:51 98.3 100 22 125/81 95 Room Air Laboratory Tests 04/18/17 19:00: Stool Occult Blood Negative 04/19/17 06:00: White Blood Count 10.1, Red Blood Count 3.01L, Hemoglobin 10.5L, Hematocrit 32.3L, Mean Corpuscular Volume 108H, Mean Corpuscular Hemoglobin 35.1H, Mean Corpuscular Hemoglobin Concent 32.6, Red Cell Distribution Width 16.7H, Platelet Count 195, Mean Platelet Volume 7.4, Neutrophils (%) (Auto) 80.8H, Lymphocytes (%) (Auto) 9.8L, Monocytes (%) (Auto) 8.4, Eosinophils (%) (Auto) 0.5, Basophils (%) (Auto) 0.5, Sodium Level 135, Potassium Level 4.2, Chloride Level 101, Carbon Dioxide Level 17L, Anion Gap 17H, Blood Urea Nitrogen 3L, Creatinine 0.5, Estimat Glomerular Filtration Rate > 60, Glucose Level 46L, Calcium Level 8.8, Lipase 76H Height (Feet): 5 Height (Inches): 6.00 Weight (Pounds): 178 Objective General: alert, cooperative, no distress, appears stated age Head: normocephalic, without obvious abnormality, atraumatic Eyes: conjunctivae/corneas clear. PERRL, EOM's intact Throat: lips, mucosa, and tongue normal. MMM Neck: supple, symmetrical, trachea midline, and no JVD Lungs: clear to auscultation bilaterally Heart: regular rate and rhythm, S1, S2 normal, no murmur, click, rub or gallop Abdomen: soft, +TTP of epigastrium, non-distended, bowel sounds normal; no masses or organomegaly Extremities: extremities normal, atraumatic, no cyanosis or edema Pulses: 2+ and symmetric Skin: skin color, texture, turgor normal; no rashes or lesions Neurologic: grossly normal, no focal deficits Justin Schwarz M.D. Apr 19, 2017 16:11
[2017-04-19] MEDS ORDERED: Iron Sucrose 200 MG in NS 110 ML IV ONE (18:00)
[2017-04-19 20:00] VITALS: BP 133/64
[2017-04-20] VITALS: BP 108/71
[2017-04-20] MEDS: NS w/KCl 20mEq 1,000 ML IV SCH (01:10)
[2017-04-20 04:00] VITALS: BP 119/77
[2017-04-20 07:10] LABS: EOSINOPHILS % (AUTO) 0.8 % (0.0-3.0); LYMPHOCYTES % (AUTO) 15.7 % (20.0-45.0); MEAN CORPUSCULAR HEMOGLOBIN 34.7 PG (27.0-31.0); MEAN CORPUSCULAR HGB CONC 32.5 G/DL (32.0-36.0); MEAN CORPUSCULAR VOLUME 107 FL (80-99); MEAN PLATELET VOLUME 6.6 FL (6.5-10.1); MONOCYTES % (AUTO) 8.1 % (1.0-10.0); NEUTROPHILS % (AUTO) 74.4 % (45.0-75.0); PLATELET COUNT 209 K/UL (150-450); RED BLOOD COUNT 2.91 M/UL (4.20-5.40); RED CELL DISTRIBUTION WIDTH 16.1 % (11.6-14.8); WHITE BLOOD COUNT 8.4 K/UL (4.8-10.8)
[2017-04-20 08:00] VITALS: BP 118/74
[2017-04-20 08:50] LABS: ANION GAP 14 (5-15); CALCIUM 8.7 mg/dL (8.6-10.2); CARBON DIOXIDE 17 mEQ/L (20-30); CHLORIDE 103 mEQ/L (98-107); CHOLESTEROL 214 mg/dL (< 200); CHOLESTEROL/HDL RATIO 9.3 (3.3-4.4); CREATININE 0.5 mg/dL (0.5-0.9); GLOMERULAR FILTRATION RATE > 60 mL/min (>60); HEMOLYSIS 3; LDL CHOLESTEROL CALC 138 mg/dL (60-99); LIPASE 94 U/L (< 60); POTASSIUM 4.8 mEQ/L (3.4-4.9); SODIUM 134 mEQ/L (135-145)
[2017-04-20] MEDS: Miralax 17gm pkt ORAL SCH (09:00)
[2017-04-20] MEDS: Docusate 100mg cap ORAL SCH (09:00)
[2017-04-20] MEDS: Heparin 5000 units/ml inj SUBQ SCH (09:10)
[2017-04-20] MEDS: Pantoprazole Inj IV SCH (09:11)
[2017-04-20] MEDS ORDERED: DILAUDID2 MG ORAL (11:21)
[2017-04-20] MEDS ORDERED: DILAUDID4 MG ORAL (11:21)
[2017-04-20] MEDS ORDERED: ZOFRAN4 M3 ORAL (11:22)
[2017-04-20] MEDS ORDERED: Tubing IV Secondary IV ONE (12:28)
--- NOTE | 2017-04-20 14:32 | GI Progress Note ---
Assessment/Plan Problems: (1) Constipation ICD Codes: K59.00 - Constipation, unspecified SNOMED: 74511838 (2) Acute blood loss anemia ICD Codes: D62 - Acute posthemorrhagic anemia SNOMED: 602100547 (3) Pancreatitis ICD Codes: K85.9 - Acute pancreatitis, unspecified SNOMED: 16512141 Qualifiers: Qualified Codes: K85.90 - Acute pancreatitis without necrosis or infection, unspecified Status: stable Status Narrative Discussed with Dr. Aguila. Assessment/Plan Assessment - recurrent pancreatitis - still with pain and TTP - HTN - obesity and fatty liver - macrocytic MCV with normal B12 - MRCP reviewed >> Acute pancreatitis. No evidence of choledocholithiasis or biliary ductal obstruction. iron deficient >> venofer Recommendations ok for DC per GI standpoint low fat diet, tolerating pain mgmt fu lipid panel avoid NSAIDs cont ppi Subjective Subjective abdominal pain improving tolerated diet Objective Last 24 Hour Vital Signs Date Time Temp Pulse Resp B/P (MAP) Pulse Ox O2 Delivery O2 Flow Rate FiO2 04/20/17 08:00 98.1 74 17 118/74 100 Room Air 04/20/17 04:00 98.2 94 21 119/77 95 Room Air 04/20/17 00:00 99.1 97 21 108/71 97 Room Air 04/19/17 20:00 99.5 109 21 133/64 99 Room Air 04/19/17 16:03 98.2 19 125/75 97 04/19/17 16:00 98.2 95 20 134/75 100 Room Air Intake and Output 04/20/17 04/21/17 19:00 07:00 Intake Total 375 ml Balance 375 ml IV Total 375 ml Laboratory Tests Test 04/20/17 05:20 White Blood Count 8.4 K/UL (4.8-10.8) Red Blood Count 2.91 M/UL (4.20-5.40) L Hemoglobin 10.1 G/DL (12.0-16.0) L Hematocrit 31.0 % (37.0-47.0) L Mean Corpuscular Volume 107 FL (80-99) H Mean Corpuscular Hemoglobin 34.7 PG (27.0-31.0) H Mean Corpuscular Hemoglobin Concent 32.5 G/DL (32.0-36.0) Red Cell Distribution Width 16.1 % (11.6-14.8) H Platelet Count 209 K/UL (150-450) Mean Platelet Volume 6.6 FL (6.5-10.1) Neutrophils (%) (Auto) 74.4 % (45.0-75.0) Lymphocytes (%) (Auto) 15.7 % (20.0-45.0) L Monocytes (%) (Auto) 8.1 % (1.0-10.0) Eosinophils (%) (Auto) 0.8 % (0.0-3.0) Basophils (%) (Auto) 1.0 % (0.0-2.0) Sodium Level 134 mEQ/L (135-145) L Potassium Level 4.8 mEQ/L (3.4-4.9) Chloride Level 103 mEQ/L (98-107) Carbon Dioxide Level 17 mEQ/L (20-30) L Anion Gap 14 (5-15) Blood Urea Nitrogen 3 mg/dL (7-23) L Creatinine 0.5 mg/dL (0.5-0.9) Estimat Glomerular Filtration Rate > 60 mL/min (>60) Glucose Level 83 mg/dL (74-106) Calcium Level 8.7 mg/dL (8.6-10.2) Triglycerides Level 267 mg/dL (< 150) H Cholesterol Level 214 mg/dL (< 200) H LDL Cholesterol 138 mg/dL (60-99) H HDL Cholesterol 23 mg/dL (> 60) Cholesterol/HDL Ratio 9.3 (3.3-4.4) H Lipase 94 U/L (< 60) H Height (Feet): 5 Height (Inches): 6.00 Weight (Pounds): 178 General Appearance: no apparent distress, alert Cardiovascular: normal rate Respiratory/Chest: normal breath sounds, no respiratory distress Abdominal Exam: normal bowel sounds, non tender, soft Genitourinary/Rectal: normal rectal exam Extremities: normal range of motion, non-tender, normal inspection [employer] N.P. Apr 20, 2017 14:32
--- NOTE | 2017-04-29 23:27 | Discharge Summary ---
Discharge Summary Hospital Course Date of Admission Apr 16, 2017 at 19:51 Date of Discharge Apr 20, 2017 at 12:29 Admitting Diagnosis Acute pancreatitis Reason for Hospitalization: Acute pancreatitis HPI 46y/o female with pmh of HTN, recurrent pancreatitis presents with abd pain. Pt states she was diagnosed w/ pancreatitis initially abt 1 year ago and last episode was 6 months ago. She describes epigastric and back pain, 10/10 dull pain. Associated w/ nausea, but denies vomiting. Has not been eating much 2/2 pain. Denies alcohol use or h/o gallstones. Denies f/c, dysuria, chest pain, SOB. Notes no BM since Wed. In ED, pt noted to have elevated lipase >[address] a/p showing acute pancreatitis. Also w/ ANANTH, hyponatremia and hypokalemia. Consultations Gastroenterology Hospital Course Pt was admitted and seen by Gi. She was kept NPO and on IVFs. Once improved, she was started on CLD and slowly advanced as tolerated. Unclear etiology of pancreatitis. U/S abd showed no gallbladder disease. MRI a/p showed acute pancreatitis but no e/o choledocholithiasis or biliary ductal obstruction. Pt's ANANTH improved w/ IVFs. Once tolerating PO and pain controlled, she was discharged home. Discharge Medications Continued Medications: Amlodipine Besylate* (Amlodipine Besylate*) 10 Mg Tablet 10 MG ORAL DAILY for 30 Days, TAB Hydrocodone Bit/Acetaminophen 5-325* (Homer 5-325*) 1 Each Tablet 1 TAB ORAL Q6H, #20 TAB Hydrocodone/Acetaminophen 5-500 (Vicodin 5-500) 1 Each Tablet 1 TAB PO Q8H, #20 TAB Take 1 tablet by mouth every eight hours as needed for pain. Hydromorphone HCl (Dilaudid) 2 Mg Tablet 2 MG ORAL Q4H, #40 TAB 0 Refills Lisinopril* (Lisinopril*) 10 Mg Tablet 20 MG ORAL DAILY Ondansetron* (Zofran*) 4 Mg Tablet 4 MG ORAL Q6H PRN for Nausea & Vomiting, TAB Pantoprazole Sodium (Protonix) 20 Mg Tablet.dr 20 MG ORAL EVERY 12 HOURS for 30 Days, TAB Thiamine Hcl (Vitamin B1*) 100 Mg Tablet 100 MG ORAL DAILY for 30 Days, TAB Zolpidem Tartrate* (Ambien*) 5 Mg Tablet 5 MG ORAL BEDTIME PRN for Insomnia, TAB Discontinued Medications: Ibuprofen* (Motrin*) 600 Mg Tablet 600 MG PO TID, #10 TAB Take 1 tablet by mouth three times a day as needed for pain. Discharge Condition Upon Discharge: stable Discharge Disposition Patient was discharged to Home (01) Discharge Diagnoses: (1) Acute recurrent pancreatitis (2) ANANTH (acute kidney injury) (3) Constipation (4) Hypokalemia (5) Hyponatremia Justin Schwarz M.D. Apr 29, 2017 23:27
== END 2017-04-20 12:29 | disposition home or self-care (01) | DRG 282 ==
LOC: EMR 19:50 → 4E 19:51 → EDBEDREQ 20:33 → 4E 04-19 21:54
DX: K85.80 Other acute pancreatitis without necrosis or infection (principal); N17.9 Acute kidney failure, unspecified; K76.0 Fatty (change of) liver, not elsewhere classified; I10 Essential (primary) hypertension; K59.00 Constipation, unspecified; D62 Acute posthemorrhagic anemia; E87.1 Hypo-osmolality and hyponatremia; E87.6 Hypokalemia; F17.290 Nicotine dependence, other tobacco product, uncomplicated; E66.9 Obesity, unspecified
CPT/HCPCS: 36415; 71010; 74177; 74183; 76700; 80048; 80053; 80061; 81003; 82248; 82270; 82607; 82728; 82746; 83540; 83550; 83690; 83735; 84703; 85025; 85044; 85610; 85730; 99285; A9585; J2405

== ENCOUNTER 2018-05-19 17:21 | Inpatient (IN) | payer OTHER ==
[~2018-05-19] VITALS: Ht 165.1 cm; Wt 81.6 kg
[~2018-05-19 17:21] MED LIST changes: +AMBIEN5 MG ORAL; +DILAUDID2 MG ORAL; +DILAUDID4 MG ORAL; +ZOFRAN4 M3 ORAL
[2018-05-19 17:30] VITALS: BP 125/85
[2018-05-19] MEDS ORDERED: Isovue-300 100ml vial INJ PRN (18:00)
[2018-05-19] MEDS ORDERED: Ketorolac 30mg Inj IV ONE (18:00)
[2018-05-19] MEDS ORDERED: Morphine Sulfate 4mg/ml Inj (IV/IM USE ONLY) IVP ONE ×2 (18:00→19:45)
--- NOTE | 2018-05-19 18:06 | Emergency Room Report ---
History of Present Illness General Chief Complaint: Abdominal Pain Source: Patient Present Illness HPI 48-year-old female patient presents ER complaining of burning epigastric pain past 2 days. Patient reports pain radiates to her back. Reports diarrhea and vomiting during this time. Denies hematemesis or coffee-ground emesis. Denies blood in diarrhea. Denies recent travel. Reports history of pancreatitis. States that she had her gallbladder removed 2 months ago. Denies drinking, drugs, alcohol. Denies fever, chest pain, shortness of breath. Denies history of heart attack or stroke. Allergies: Coded Allergies: No Known Allergies (Unverified , 05/13/13) Patient History Past Medical History: see triage record Now: No Reviewed Nursing Documentation: PMH: Agreed; PSxH: Agreed Nursing Documentation-PMH Past Medical History: No History, Except For Hx Cardiac Problems: No Hx Hypertension: Yes Hx Cancer: Yes - Lung (Dad) Hx Gastrointestinal Problems: Yes - Gastritis Hx Neurological Problems: No Review of Systems All Other Systems: negative except mentioned in HPI Physical Exam Vital Signs Date Time Temp Pulse Resp B/P (MAP) Pulse Ox O2 Delivery O2 Flow Rate FiO2 05/19/18 17:36 98.6 121 20 128/86 95 Room Air Sp02 EP Interpretation: reviewed, normal General Appearance: well appearing, no apparent distress, alert, GCS 15, non- toxic Head: normocephalic, atraumatic Eyes: bilateral eye normal inspection, bilateral eye PERRL ENT: hearing grossly normal, normal pharynx, no angioedema, normal voice, uvula midline, moist mucus membranes Neck: full range of motion Respiratory: lungs clear, normal breath sounds, no rhonchi, no respiratory distress, no accessory muscle use, no wheezing, speaking full sentences Cardiovascular #1: regular rate, rhythm, no edema Cardiovascular #2: 2+ radial (R), 2+ radial (L) Gastrointestinal: soft, no mass, non-distended, guarding, tenderness - epigastric Genitourinary: no CVA tenderness Musculoskeletal: back normal, digits/nails normal, gait/station normal, normal range of motion, non-tender Neurologic: alert, oriented x3, responsive, motor strength/tone normal, sensory intact Psychiatric: mood/affect normal Skin: no rash Medical Decision Making PA Attestation Dr. Cuevas is my supervising Physician whom patient management has been discussed with. Diagnostic Impression: Primary Impression: Acute pancreatitis ER Course Pt. presents to the ED c/o abdominal pain diarrhea and vomiting. Ddx considered but are not limited to UTI, pancreatitis, appendicitis, diverticulitis, AAA, constipation, drug use, alcohol use, GERD, reflux, food poisoning. Begin abdominal pain workup. Provided patient with pain medication. Vital signs: are WNL, pt. is afebrile ORDERS: CBC, CMP, Lipase, UA, CT abdomen pelvis and medication. ER COURSE: CBC shows no elevation in WBCS CMP unremarkable, mild elevation of AST and alkaline phosphatase, doesn't require intervention at this time. Lipase elevated UA does not indicate infection, many epithelial cells, no dysuria hematuria, suspicion for UTI. Discuss results with patient CT abdomen and pelvis shows pancreatic head enlargement with mild inflammation, compared to previous studies, inflammation decreased comparatively. Discuss results with patient. Patient likely has acute pancreatitis. Provided patient with pain medication and IV fluids. Will admit patient for acute pancreatitis. Discuss care with Dr. Cuevas, agrees with assessment and treatment plan. Patient will be admitted to Dr. Peck. - Please note that this Emergency Department Report was dictated using [employer] sander offbearer technology software, occasionally this can lead to erroneous entry secondary to interpretation by the dictation equipment. Labs Test 05/19/18 17:50 05/19/18 18:50 White Blood Count 5.6 K/UL (4.8-10.8) Red Blood Count 4.42 M/UL (4.20-5.40) Hemoglobin 14.3 G/DL (12.0-16.0) Hematocrit 42.7 % (37.0-47.0) Mean Corpuscular Volume 96 FL (80-99) Mean Corpuscular Hemoglobin 32.3 PG (27.0-31.0) Mean Corpuscular Hemoglobin Concent 33.4 G/DL (32.0-36.0) Red Cell Distribution Width 14.6 % (11.6-14.8) Platelet Count 262 K/UL (150-450) Mean Platelet Volume 6.4 FL (6.5-10.1) Neutrophils (%) (Auto) 57.9 % (45.0-75.0) Lymphocytes (%) (Auto) 33.2 % (20.0-45.0) Monocytes (%) (Auto) 6.1 % (1.0-10.0) Eosinophils (%) (Auto) 0.8 % (0.0-3.0) Basophils (%) (Auto) 2.1 % (0.0-2.0) Sodium Level 135 MMOL/L (136-145) Potassium Level 4.2 MMOL/L (3.5-5.1) Chloride Level 99 MMOL/L (98-107) Carbon Dioxide Level 21 MMOL/L (21-32) Anion Gap 16 mmol/L (5-15) Blood Urea Nitrogen 15 mg/dL (7-18) Creatinine 0.8 MG/DL (0.55-1.30) Estimat Glomerular Filtration Rate > 60 mL/min (>60) Glucose Level 102 MG/DL (74-106) Calcium Level 10.2 MG/DL (8.5-10.1) Total Bilirubin 0.7 MG/DL (0.2-1.0) Aspartate Amino Transf (AST/SGOT) 61 U/L (15-37) Alanine Aminotransferase (ALT/SGPT) 48 U/L (12-78) Alkaline Phosphatase 143 U/L (46-116) Total Protein 8.7 G/DL (6.4-8.2) Albumin 4.1 G/DL (3.4-5.0) Globulin 4.6 g/dL Albumin/Globulin Ratio 0.9 (1.0-2.7) Lipase 878 U/L (73-393) Urine Color Domitila Urine Appearance Cloudy Urine pH 6 (4.5-8.0) Urine Specific [place] 1.010 (1.005-1.035) Urine Protein 2+ (NEGATIVE) Urine Glucose (UA) Negative (NEGATIVE) Urine Ketones 3+ (NEGATIVE) Urine Blood 1+ (NEGATIVE) Urine Nitrite Negative (NEGATIVE) Urine Bilirubin 2+ (NEGATIVE) Urine Ictotest Negative (NEGATIVE) Urine Urobilinogen 4 MG/DL (0.0-1.0) Urine Leukocyte Esterase 2+ (NEGATIVE) Urine RBC 2-4 /HPF (0 - 2) Urine WBC 2-4 /HPF (0 - 2) Urine Squamous Epithelial Cells Moderate /LPF (NONE/OCC) Urine Bacteria Moderate /HPF (NONE) CT/MRI/US Diagnostic Results CT/MRI/US Diagnostic Results : Imaging Test Ordered: CT abdomen pelvis with contrast Impression Compared with 04/14/17 inflammation from acute pancreatitis has subsided improved in the interval. Currently, pancreatic head enlarged with mild inflammation. No new abnormalities of concern. No pseudocyst or abscess. Normal appendix, no SBO, free fluid, or free air Last Vital Signs Date Time Temp Pulse Resp B/P (MAP) Pulse Ox O2 Delivery O2 Flow Rate FiO2 05/19/18 17:36 98.6 121 20 128/86 95 Room Air Disposition: ADMITTED INPATIENT Condition: Serious Ramon Randhawa May 19, 2018 18:06
[2018-05-19 18:20] LABS: BASOPHILS % (AUTO) 2.1 % (0.0-2.0); EOSINOPHILS % (AUTO) 0.8 % (0.0-3.0); HEMATOCRIT 42.7 % (37.0-47.0); HEMOGLOBIN 14.3 G/DL (12.0-16.0); LYMPHOCYTES % (AUTO) 33.2 % (20.0-45.0); MEAN CORPUSCULAR VOLUME 96 FL (80-99); MONOCYTES % (AUTO) 6.1 % (1.0-10.0); NEUTROPHILS % (AUTO) 57.9 % (45.0-75.0); PLATELET COUNT 262 K/UL (150-450); RED BLOOD COUNT 4.42 M/UL (4.20-5.40); RED CELL DISTRIBUTION WIDTH 14.6 % (11.6-14.8); WHITE BLOOD COUNT 5.6 K/UL (4.8-10.8)
[2018-05-19 18:43] LABS: ANION GAP 16 mmol/L (5-15); BLOOD UREA NITROGEN 15 mg/dL (7-18); CALCIUM 10.2 MG/DL (8.5-10.1); CARBON DIOXIDE 21 MMOL/L (21-32); CHLORIDE 99 MMOL/L (98-107); CREATININE 0.8 MG/DL (0.55-1.30); POTASSIUM 4.2 MMOL/L (3.5-5.1); SODIUM 135 MMOL/L (136-145)
[2018-05-19 18:47] LABS: ALANINE AMINOTRANSFERASE 48 U/L (12-78); ALBUMIN 4.1 G/DL (3.4-5.0); ALBUMIN/GLOBULIN RATIO 0.9 (1.0-2.7); ALKALINE PHOSPHATASE 143 U/L (46-116); ASPARTATE AMINO TRANSFERASE 61 U/L (15-37); BILIRUBIN,TOTAL 0.7 MG/DL (0.2-1.0)
[2018-05-19 19:06] LABS: APPEARANCE,URINE CLOUDY; BILIRUBIN, URINE 2+ (NEGATIVE); GLUCOSE, URINE (UA) NEGATIVE (NEGATIVE); KETONES,URINE 3+ (NEGATIVE); LEUKOCYTE ESTERASE ,URINE 2+ (NEGATIVE); NITRITE,URINE NEGATIVE (NEGATIVE); PH,URINE 6 (4.5-8.0); PROTEIN,URINE 2+ (NEGATIVE); UROBILINOGEN,URINE 4 MG/DL (0.0-1.0)
[2018-05-19 19:08] LABS: COLOR,URINE AMBER
[2018-05-19] MEDS ORDERED: Miralax 17gm pkt ORAL PRN (21:30)
[2018-05-19] MEDS ORDERED: Promethazine HCl 25 MG in NS 55 ML IV PRN (21:30)
[2018-05-19] MEDS ORDERED: Metoclopramide 10mg/2ml Inj IVP PRN (21:30)
[2018-05-19] MEDS ORDERED: LORazepam Inj 2mg/ml 1ml IV PRN (21:30)
[2018-05-19] MEDS ORDERED: Nitroglycerin Subl 0.4mg tab SL PRN (21:30)
[2018-05-19] MEDS ORDERED: Promethazine HCl 12.5 MG in NS 55 ML IV PRN (21:30)
[2018-05-19] MEDS ORDERED: Mylanta II UD 30ml ORAL PRN (21:30)
[2018-05-19] MEDS: D5 1/2NS 1,000 ML IV SCH (22:44)
[2018-05-20] VITALS: BP 121/85
[2018-05-20] MEDS: Morphine Sulfate 2mg/ml Inj IVP PRN ×2 (00:03→04:27)
[2018-05-20 04:00] VITALS: BP 120/70
[2018-05-20 07:09] LABS: BASOPHILS % (AUTO) 1.3 % (0.0-2.0); EOSINOPHILS % (AUTO) 2.9 % (0.0-3.0); HEMATOCRIT 36.4 % (37.0-47.0); LYMPHOCYTES % (AUTO) 39.1 % (20.0-45.0); MEAN CORPUSCULAR VOLUME 94 FL (80-99); MONOCYTES % (AUTO) 11.5 % (1.0-10.0); NEUTROPHILS % (AUTO) 45.2 % (45.0-75.0); PLATELET COUNT 239 K/UL (150-450); RED BLOOD COUNT 3.87 M/UL (4.20-5.40); RED CELL DISTRIBUTION WIDTH 14.4 % (11.6-14.8)
[2018-05-20 07:26] LABS: ALANINE AMINOTRANSFERASE 36 U/L (12-78); ALBUMIN 3.3 G/DL (3.4-5.0); ALBUMIN/GLOBULIN RATIO 0.9 (1.0-2.7); ALKALINE PHOSPHATASE 109 U/L (46-116); AMYLASE 81 U/L (25-115); ANION GAP 13 mmol/L (5-15); ASPARTATE AMINO TRANSFERASE 35 U/L (15-37); BILIRUBIN,TOTAL 0.5 MG/DL (0.2-1.0); BLOOD UREA NITROGEN 13 mg/dL (7-18); CALCIUM 8.9 MG/DL (8.5-10.1); CARBON DIOXIDE 22 MMOL/L (21-32); CHLORIDE 103 MMOL/L (98-107); CREATININE 0.8 MG/DL (0.55-1.30); SODIUM 138 MMOL/L (136-145)
[2018-05-20 07:39] LABS: POTASSIUM 2.6 MMOL/L (3.5-5.1)
[2018-05-20 08:00] VITALS: BP 110/88
[2018-05-20] MEDS: Heparin 5000 units/ml inj SUBQ SCH ×2 (08:37→20:13)
--- NOTE | 2018-05-20 09:59 | Diagnostic Imaging Report ---
Indication: Abdominal pain Technique: Continuous helical transaxial imaging of the abdomen and pelvis was obtained from the lung bases to the pubic symphysis during intravenous contrast administration. Coronal 2-D reformats were also obtained. Study obtained in a Siemens sensation [address] Automatic Exposure Control was utilized. Total Dose length Product (DLP): 733.[address] Dose Index Volume (CTDIvol): 14.56 mGy Comparison: 04/16/2017 Findings: There is evidence of a residual pancreatitis mainly involving the body and the head of the pancreas characterized by enlargement of the pancreas and some mild peripancreatic soft tissue stranding. The findings have improved considerably since the last exam from 04/16/2017 which showed much more inflammation surrounding the pancreas. No development of a pseudocyst or abscess identified. The appendix is identified and appears normal. Arterial calcifications are present. The bladder is nondistended. Cholecystectomy noted. Lung bases are clear. No hydronephrosis seen. No evidence of bowel obstruction, free fluid or free air. IMPRESSION: Evidence of mild pancreatitis in the area of the pancreatic head. Considerable interval improvement since the last occasion from 04/16/2017. The CT scanner at [facility] is accredited by the [employer] and the scans are performed using dose optimization techniques as appropriate to a performed exam including Automatic Exposure control.
[2018-05-20 10:07] LABS: CHOLESTEROL 173 MG/DL (< 200); HDL CHOLESTEROL 38 MG/DL (40-60); TRIGLYCERIDES 229 MG/DL (30-150)
[2018-05-20] MEDS: D5 1/2NS 1,000 ML IV SCH (10:46)
--- NOTE | 2018-05-20 10:49 | Consultation ---
History of Present Illness General Date patient seen: May 20, 2018 Chief Complaint: Abdominal Pain Present Illness HPI 48 year old female with PMHx of HTN, recurrent pancreatitis presents with abd pain. Pt states she was diagnosed w/ pancreatitis initially about 3 year ago. She describes epigastric and back pain, 10/10 dull pain. Associated w/ nausea, but denies vomiting. Denies alcohol use or h/o gallstones. In ED, pt noted to have elevated lipase >[address] a/p showing acute pancreatitis. Allergies: Coded Allergies: No Known Allergies (Unverified , 05/13/13) Medication History Scheduled Amlodipine Besylate* (Amlodipine Besylate*), 10 MG ORAL DAILY Hydrocodone Bit/Acetaminophen 5-325* (Mccune 5-325*), 1 TAB ORAL Q6H Hydrocodone/Acetaminophen 5-500 (Vicodin 5-500), 1 TAB PO Q8H Hydromorphone HCl (Dilaudid), 4 MG ORAL Q6HR, (Reported) Hydromorphone HCl (Dilaudid), 2 MG ORAL Q4H, (Reported) Lisinopril* (Lisinopril*), 20 MG ORAL DAILY, (Reported) Pantoprazole Sodium (Protonix), 20 MG ORAL EVERY 12 HOURS Thiamine Hcl (Vitamin B1*), 100 MG ORAL DAILY Scheduled PRN Ondansetron* (Zofran*), 4 MG ORAL Q6H PRN for Nausea & Vomiting, (Reported) Zolpidem Tartrate* (Ambien*), 5 MG ORAL BEDTIME PRN for Insomnia, (Reported) Patient History Healthcare decision maker N Resuscitation status Full Code Advanced Directive on File Past Medical/Surgical History Past Medical/Surgical History: (1) Acute pancreatitis Review of Systems All Other Systems: negative except mentioned in HPI Physical Exam General Appearance: WD/WN, no apparent distress Lines, tubes and drains: peripheral HEENT: normocephalic, atraumatic Neck: non-tender, normal alignment Respiratory/Chest: chest wall non-tender, lungs clear Cardiovascular/Chest: normal peripheral pulses, normal rate Abdomen: normal bowel sounds, non tender Genitourinary/Rectal: normal genital exam Last 24 Hour Vital Signs Date Time Temp Pulse Resp B/P (MAP) Pulse Ox O2 Delivery O2 Flow Rate FiO2 05/20/18 09:00 Room Air 05/20/18 08:00 97.9 87 17 110/88 (95) 99 05/20/18 04:00 97.9 85 17 120/70 (87) 97 05/20/18 00:00 98.1 80 18 121/85 (97) 99 05/19/18 23:27 Room Air 05/19/18 22:10 98.6 75 20 128/86 95 Room Air 05/19/18 17:36 98.6 121 20 128/86 95 Room Air 05/19/18 17:30 98.6 85 20 125/85 95 Room Air Intake and Output 05/19/18 05/20/18 19:00 07:00 Intake Total 840 ml Output Total 100 ml Balance -100 ml 840 ml Intake Oral 240 ml IV Total 600 ml Output Urine Total 100 ml Laboratory Tests Test 05/19/18 17:50 05/19/18 18:50 05/20/18 06:25 White Blood Count 5.6 K/UL (4.8-10.8) 4.0 K/UL (4.8-10.8) L Red Blood Count 4.42 M/UL (4.20-5.40) 3.87 M/UL (4.20-5.40) L Hemoglobin 14.3 G/DL (12.0-16.0) 12.0 G/DL (12.0-16.0) Hematocrit 42.7 % (37.0-47.0) 36.4 % (37.0-47.0) L Mean Corpuscular Volume 96 FL (80-99) 94 FL (80-99) Mean Corpuscular Hemoglobin 32.3 PG (27.0-31.0) H 31.1 PG (27.0-31.0) H Mean Corpuscular Hemoglobin Concent 33.4 G/DL (32.0-36.0) 33.0 G/DL (32.0-36.0) Red Cell Distribution Width 14.6 % (11.6-14.8) 14.4 % (11.6-14.8) Platelet Count 262 K/UL (150-450) 239 K/UL (150-450) Mean Platelet Volume 6.4 FL (6.5-10.1) L 6.5 FL (6.5-10.1) Neutrophils (%) (Auto) 57.9 % (45.0-75.0) 45.2 % (45.0-75.0) Lymphocytes (%) (Auto) 33.2 % (20.0-45.0) 39.1 % (20.0-45.0) Monocytes (%) (Auto) 6.1 % (1.0-10.0) 11.5 % (1.0-10.0) H Eosinophils (%) (Auto) 0.8 % (0.0-3.0) 2.9 % (0.0-3.0) Basophils (%) (Auto) 2.1 % (0.0-2.0) H 1.3 % (0.0-2.0) Sodium Level 135 MMOL/L (136-145) L 138 MMOL/L (136-145) Potassium Level 4.2 MMOL/L (3.5-5.1) 2.6 MMOL/L (3.5-5.1) *L Chloride Level 99 MMOL/L (98-107) 103 MMOL/L (98-107) Carbon Dioxide Level 21 MMOL/L (21-32) 22 MMOL/L (21-32) Anion Gap 16 mmol/L (5-15) H 13 mmol/L (5-15) Blood Urea Nitrogen 15 mg/dL (7-18) 13 mg/dL (7-18) Creatinine 0.8 MG/DL (0.55-1.30) 0.8 MG/DL (0.55-1.30) Estimat Glomerular Filtration Rate > 60 mL/min (>60) > 60 mL/min (>60) Glucose Level 102 MG/DL (74-106) 116 MG/DL (74-106) H Calcium Level 10.2 MG/DL (8.5-10.1) H 8.9 MG/DL (8.5-10.1) Total Bilirubin 0.7 MG/DL (0.2-1.0) 0.5 MG/DL (0.2-1.0) Aspartate Amino Transf (AST/SGOT) 61 U/L (15-37) H 35 U/L (15-37) Alanine Aminotransferase (ALT/SGPT) 48 U/L (12-78) 36 U/L (12-78) Alkaline Phosphatase 143 U/L (46-116) H 109 U/L (46-116) Total Protein 8.7 G/DL (6.4-8.2) H 7.0 G/DL (6.4-8.2) Albumin 4.1 G/DL (3.4-5.0) 3.3 G/DL (3.4-5.0) L Globulin 4.6 g/dL 3.7 g/dL Albumin/Globulin Ratio 0.9 (1.0-2.7) L 0.9 (1.0-2.7) L Lipase 878 U/L (73-393) H 448 U/L (73-393) H Serum Alcohol < 3 mg/dL Urine Color Domitila Urine Appearance Cloudy Urine pH 6 (4.5-8.0) Urine Specific [place] 1.010 (1.005-1.035) Urine Protein 2+ (NEGATIVE) H Urine Glucose (UA) Negative (NEGATIVE) Urine Ketones 3+ (NEGATIVE) H Urine Blood 1+ (NEGATIVE) H Urine Nitrite Negative (NEGATIVE) Urine Bilirubin 2+ (NEGATIVE) H Urine Ictotest Negative (NEGATIVE) Urine Urobilinogen 4 MG/DL (0.0-1.0) H Urine Leukocyte Esterase 2+ (NEGATIVE) H Urine RBC 2-4 /HPF (0 - 2) H Urine WBC 2-4 /HPF (0 - 2) Urine Squamous Epithelial Cells Moderate /LPF (NONE/OCC) H Urine Bacteria Moderate /HPF (NONE) H Activated Partial Thromboplast Time 28 SEC (23-33) Triglycerides Level 229 MG/DL (30-150) H Cholesterol Level 173 MG/DL (< 200) LDL Cholesterol 100 mg/dL (<100) HDL Cholesterol 38 MG/DL (40-60) L Cholesterol/HDL Ratio 4.6 (3.3-4.4) H Amylase Level 81 U/L (25-115) Height (Feet): 5 Height (Inches): 5.00 Weight (Pounds): 180 Medications Current Medications Medications (Trade) Dose Ordered Sig/Kash Route PRN Reason Start Time Stop Time Status Last Admin Dose Admin Acetaminophen (Tylenol) 650 mg Q4H PRN ORAL fever 05/19/18 21:30 06/18/18 21:29 Al Hydroxide/Mg Hydroxide (Mylanta II) 30 ml Q6H PRN ORAL dyspepsia 05/19/18 21:30 06/18/18 21:29 Dextrose (Dextrose 50%) 25 ml Q30M PRN IV Hypoglycemia 05/19/18 21:30 06/18/18 21:29 Dextrose (Dextrose 50%) 50 ml Q30M PRN IV Hypoglycemia 05/19/18 21:30 06/18/18 21:29 Dextrose/Sodium Chloride 1,000 ml @ 75 mls/hr [id number] IV 05/19/18 21:17 06/18/18 21:16 05/20/18 10:46 Diphenhydramine HCl (Benadryl) 25 mg Q6H PRN ORAL Itching/Pruritis 05/19/18 21:30 06/18/18 21:29 Heparin Sodium (Porcine) (Heparin 5000 units/ml) 5,000 units EVERY 12 HOURS SUBQ 05/20/18 09:00 06/19/18 08:59 05/20/18 08:37 Hydromorphone HCl (Dilaudid) 2 mg Q4H PRN IVP Severe Pain (Pain Scale 7-10) 05/20/18 08:15 05/27/18 08:14 05/20/18 08:20 Iopamidol (Isovue-300 100ml) 100 ml NOW PRN INJ Radiology Procedure 05/19/18 18:00 Lorazepam (Ativan 2mg/ml 1ml) 1 mg Q4H PRN IV agitation 05/19/18 21:30 05/26/18 21:29 Metoclopramide HCl (Reglan) 10 mg Q6H PRN IVP severe nausea 05/19/18 21:30 06/18/18 21:29 Nitroglycerin (Ntg) 0.4 mg Q5M X 3 DOSES PRN SL Prn Chest Pain 05/19/18 21:30 06/18/18 21:29 Ondansetron HCl (Zofran) 4 mg Q6H PRN IVP Nausea & Vomiting 05/19/18 21:30 06/18/18 21:29 05/20/18 08:35 Polyethylene Glycol (Miralax) 17 gm HSPRN PRN ORAL Constipation 05/19/18 21:30 06/18/18 21:29 Potassium Chloride 100 ml @ 100 mls/hr Q1HR IVPB 05/20/18 09:00 05/20/18 12:59 05/20/18 10:45 Promethazine HCl (Phenergan) 12.5 mg Q6H PRN IM refractory nausea/vomiting 05/19/18 21:45 06/18/18 21:44 Temazepam (Restoril) 15 mg HSPRN PRN ORAL Insomnia 05/19/18 21:30 05/26/18 21:29 05/19/18 22:51 Assessment/Plan Problem List: (1) Acute recurrent pancreatitis ICD Codes: K85.90 - Acute pancreatitis without necrosis or infection, unspecified SNOMED: 125788430 (2) Hypertension ICD Codes: I10 - Essential (primary) hypertension SNOMED: 14136284 Assessment/Plan npo iv fluids GI evaluation d/w chika Payne GI DISTRICT OPERATIONS MANAGER dvt prophylaxis symptomatic treatment Bobo Cabezas MD May 20, 2018 10:49
--- NOTE | 2018-05-20 11:21 | Diagnostic Imaging Report ---
Indication:Abdominal pain Technique: Grayscale and duplex Doppler imaging of the abdomen performed. Comparison: None Findings: The liver is unremarkable. The gallbladder is absent. The demonstrated part of the pancreas, aorta and IVC show no abnormalities. CBD is 7.7 mm. Both kidneys appear unremarkable. The spleen is normal in size. There is no biliary ductal dilatation identified. Doppler evaluation of the main portal vein shows patency. There is no ascites. No hydronephrosis seen. There is a 1 cm left renal cyst. Impression: No acute findings. Status post cholecystectomy Left renal cyst
[2018-05-20 11:47] VITALS: BP 108/65
--- NOTE | 2018-05-20 13:30 | GI Initial Consult Note ---
History of Present Illness General Date patient seen: May 20, 2018 Time patient seen: 13:13 Reason for Hospitalization: Abdominal Pain Referring physician: PRINCE MIDDLETON Reason for Consultation: PANCREATITIS Present Illness HPI 48-year-old female patient presents ER complaining of burning epigastric pain past 2 days. Patient reports pain radiates to her back. Reports diarrhea and vomiting during this time. Denies hematemesis or coffee-ground emesis. Denies blood in diarrhea. Denies recent travel. Reports history of pancreatitis. States that she had her gallbladder removed 2 months ago. Denies drinking, drugs, alcohol. Denies fever, chest pain, shortness of breath. Denies history of heart attack or stroke. GI consulted for acute pancreatitis. Pt seen, awake A&Ox4 NAD has c/o of epigastric pain x 2 days. In addition, states she has been having loose stools for over the past month. Prior to her episode, reported that she had a large pastrami sandwich. Patient had EGD back in 2015, noted with EDIE. Presents today with elevated lipase levels now downtrending. No leukocytosis. No anemia. No noted history of colonoscopy. Home Meds Active Scripts Amlodipine Besylate* (AMLODIPINE BESYLATE*) 10 Mg Tablet, 10 MG ORAL DAILY for 30 Days, TAB Prov:Demetrius Merritt MD 10/23/15 Thiamine Hcl (VITAMIN B1*) 100 Mg Tablet, 100 MG ORAL DAILY for 30 Days, TAB Prov:Demetrius Merritt MD 10/23/15 Pantoprazole Sodium (PROTONIX) 20 Mg Tablet.dr, 20 MG ORAL EVERY 12 HOURS for 30 Days, TAB Prov:Demetrius Merritt MD 10/23/15 Hydrocodone Bit/Acetaminophen 5-325* (NORCO 5-325*) 1 Each Tablet, 1 TAB ORAL Q6H, #20 TAB Prov:EVELIA EDWARD M.D. 05/14/13 Hydrocodone/Acetaminophen 5-500 (VICODIN 5-500) 1 Each Tablet, 1 TAB PO Q8H, # 20 TAB Take 1 tablet by mouth every eight hours as needed for pain. Prov:MANUEL CRUZ 07/18/12 Reported Medications Ondansetron* (ZOFRAN*) 4 Mg Tablet, 4 MG ORAL Q6H PRN for Nausea & Vomiting, TAB 04/20/17 Hydromorphone HCl (Dilaudid) 2 Mg Tablet, 2 MG ORAL Q4H, #40 TAB 0 Refills 04/20/17 Hydromorphone HCl (Dilaudid) 4 Mg Tablet, 4 MG ORAL Q6HR, #20 TAB 0 Refills 04/20/17 Zolpidem Tartrate* (AMBIEN*) 5 Mg Tablet, 5 MG ORAL BEDTIME PRN for Insomnia, TAB 04/16/17 Lisinopril* (LISINOPRIL*) 10 Mg Tablet, 20 MG ORAL DAILY 01/30/13 Med list reviewed/reconciled: Yes Allergies: Coded Allergies: No Known Allergies (Unverified , 05/13/13) Patient History History Provided By: Patient, Medical Record PMH Narrative Past Medical History: see triage record Now: No Reviewed Nursing Documentation: PMH: Agreed; PSxH: Agreed Nursing Documentation-PMH Past Medical History: No History, Except For Hx Cardiac Problems: No Hx Hypertension: Yes Hx Cancer: Yes - Lung (Dad) Hx Gastrointestinal Problems: Yes - Gastritis Hx Neurological Problems: No Social History: Denies: smoking, alcohol use, drug use, other Review of Systems All Other Systems: negative except mentioned in HPI Physical Exam Vital Signs Date Time Temp Pulse Resp B/P (MAP) Pulse Ox O2 Delivery O2 Flow Rate FiO2 05/19/18 17:30 98.6 85 20 125/85 95 Room Air Sp02 EP Interpretation: reviewed, normal Labs Laboratory Tests Test 05/19/18 17:50 05/19/18 18:50 05/20/18 06:25 05/20/18 12:00 White Blood Count 5.6 K/UL (4.8-10.8) 4.0 K/UL (4.8-10.8) L Red Blood Count 4.42 M/UL (4.20-5.40) 3.87 M/UL (4.20-5.40) L Hemoglobin 14.3 G/DL (12.0-16.0) 12.0 G/DL (12.0-16.0) Hematocrit 42.7 % (37.0-47.0) 36.4 % (37.0-47.0) L Mean Corpuscular Volume 96 FL (80-99) 94 FL (80-99) Mean Corpuscular Hemoglobin 32.3 PG (27.0-31.0) H 31.1 PG (27.0-31.0) H Mean Corpuscular Hemoglobin Concent 33.4 G/DL (32.0-36.0) 33.0 G/DL (32.0-36.0) Red Cell Distribution Width 14.6 % (11.6-14.8) 14.4 % (11.6-14.8) Platelet Count 262 K/UL (150-450) 239 K/UL (150-450) Mean Platelet Volume 6.4 FL (6.5-10.1) L 6.5 FL (6.5-10.1) Neutrophils (%) (Auto) 57.9 % (45.0-75.0) 45.2 % (45.0-75.0) Lymphocytes (%) (Auto) 33.2 % (20.0-45.0) 39.1 % (20.0-45.0) Monocytes (%) (Auto) 6.1 % (1.0-10.0) 11.5 % (1.0-10.0) H Eosinophils (%) (Auto) 0.8 % (0.0-3.0) 2.9 % (0.0-3.0) Basophils (%) (Auto) 2.1 % (0.0-2.0) H 1.3 % (0.0-2.0) Sodium Level 135 MMOL/L (136-145) L 138 MMOL/L (136-145) Potassium Level 4.2 MMOL/L (3.5-5.1) 2.6 MMOL/L (3.5-5.1) *L Chloride Level 99 MMOL/L (98-107) 103 MMOL/L (98-107) Carbon Dioxide Level 21 MMOL/L (21-32) 22 MMOL/L (21-32) Anion Gap 16 mmol/L (5-15) H 13 mmol/L (5-15) Blood Urea Nitrogen 15 mg/dL (7-18) 13 mg/dL (7-18) Creatinine 0.8 MG/DL (0.55-1.30) 0.8 MG/DL (0.55-1.30) Estimat Glomerular Filtration Rate > 60 mL/min (>60) > 60 mL/min (>60) Glucose Level 102 MG/DL (74-106) 116 MG/DL (74-106) H Calcium Level 10.2 MG/DL (8.5-10.1) H 8.9 MG/DL (8.5-10.1) Total Bilirubin 0.7 MG/DL (0.2-1.0) 0.5 MG/DL (0.2-1.0) Aspartate Amino Transf (AST/SGOT) 61 U/L (15-37) H 35 U/L (15-37) Alanine Aminotransferase (ALT/SGPT) 48 U/L (12-78) 36 U/L (12-78) Alkaline Phosphatase 143 U/L (46-116) H 109 U/L (46-116) Total Protein 8.7 G/DL (6.4-8.2) H 7.0 G/DL (6.4-8.2) Albumin 4.1 G/DL (3.4-5.0) 3.3 G/DL (3.4-5.0) L Globulin 4.6 g/dL 3.7 g/dL Albumin/Globulin Ratio 0.9 (1.0-2.7) L 0.9 (1.0-2.7) L Lipase 878 U/L (73-393) H 448 U/L (73-393) H Serum Alcohol < 3 mg/dL Urine Color Domitila Urine Appearance Cloudy Urine pH 6 (4.5-8.0) Urine Specific [place] 1.010 (1.005-1.035) Urine Protein 2+ (NEGATIVE) H Urine Glucose (UA) Negative (NEGATIVE) Urine Ketones 3+ (NEGATIVE) H Urine Blood 1+ (NEGATIVE) H Urine Nitrite Negative (NEGATIVE) Urine Bilirubin 2+ (NEGATIVE) H Urine Ictotest Negative (NEGATIVE) Urine Urobilinogen 4 MG/DL (0.0-1.0) H Urine Leukocyte Esterase 2+ (NEGATIVE) H Urine RBC 2-4 /HPF (0 - 2) H Urine WBC 2-4 /HPF (0 - 2) Urine Squamous Epithelial Cells Moderate /LPF (NONE/OCC) H Urine Bacteria Moderate /HPF (NONE) H Activated Partial Thromboplast Time 28 SEC (23-33) Triglycerides Level 229 MG/DL (30-150) H Cholesterol Level 173 MG/DL (< 200) LDL Cholesterol 100 mg/dL (<100) HDL Cholesterol 38 MG/DL (40-60) L Cholesterol/HDL Ratio 4.6 (3.3-4.4) H Amylase Level 81 U/L (25-115) Urine Opiates Screen Pending Urine Barbiturates Screen Pending Phencyclidine (PCP) Screen Pending Urine Amphetamines Screen Pending Urine Benzodiazepines Screen Pending Urine Cocaine Screen Pending Urine Marijuana (THC) Screen Pending General Appearance: well appearing, no apparent distress, alert Head: normocephalic EENT: PERRL/EOMI, normal ENT inspection Neck: supple Respiratory: normal breath sounds, no respiratory distress Cardiovascular: normal rate Gastrointestinal: normal inspection, non tender, soft, normal bowel sounds, non -distended Rectal: deferred Genitourinary: no CVA tenderness Musculoskeletal: normal inspection, back normal Neurologic: normal inspection, alert, oriented x3, responsive Psychiatric: normal inspection, judgement/insight normal, memory normal Skin: normal inspection, normal color, no rash, warm/dry, palpation normal, well hydrated Lymphatic: normal inspection, no adenopathy Current Medications Current Medications Medications (Trade) Dose Ordered Sig/Kash Route PRN Reason Start Time Stop Time Status Last Admin Dose Admin Acetaminophen (Tylenol) 650 mg Q4H PRN ORAL fever 05/19/18 21:30 06/18/18 21:29 Al Hydroxide/Mg Hydroxide (Mylanta II) 30 ml Q6H PRN ORAL dyspepsia 05/19/18 21:30 06/18/18 21:29 Dextrose (Dextrose 50%) 25 ml Q30M PRN IV Hypoglycemia 05/19/18 21:30 06/18/18 21:29 Dextrose (Dextrose 50%) 50 ml Q30M PRN IV Hypoglycemia 05/19/18 21:30 06/18/18 21:29 Dextrose/Sodium Chloride 1,000 ml @ 75 mls/hr [id number] IV 05/19/18 21:17 06/18/18 21:16 05/20/18 10:46 Diphenhydramine HCl (Benadryl) 25 mg Q6H PRN ORAL Itching/Pruritis 05/19/18 21:30 06/18/18 21:29 Heparin Sodium (Porcine) (Heparin 5000 units/ml) 5,000 units EVERY 12 HOURS SUBQ 05/20/18 09:00 06/19/18 08:59 05/20/18 08:37 Hydromorphone HCl (Dilaudid) 2 mg Q3H PRN IVP Severe Pain (Pain Scale 7-10) 05/20/18 11:00 05/27/18 10:59 05/20/18 12:04 Iopamidol (Isovue-300 100ml) 100 ml NOW PRN INJ Radiology Procedure 05/19/18 18:00 Lorazepam (Ativan 2mg/ml 1ml) 1 mg Q4H PRN IV agitation 05/19/18 21:30 05/26/18 21:29 Metoclopramide HCl (Reglan) 10 mg Q6H PRN IVP severe nausea 05/19/18 21:30 06/18/18 21:29 Nitroglycerin (Ntg) 0.4 mg Q5M X 3 DOSES PRN SL Prn Chest Pain 05/19/18 21:30 06/18/18 21:29 Ondansetron HCl (Zofran) 4 mg Q6H PRN IVP Nausea & Vomiting 05/19/18 21:30 06/18/18 21:29 05/20/18 08:35 Polyethylene Glycol (Miralax) 17 gm HSPRN PRN ORAL Constipation 05/19/18 21:30 06/18/18 21:29 Promethazine HCl (Phenergan) 12.5 mg Q6H PRN IM refractory nausea/vomiting 05/19/18 21:45 06/18/18 21:44 Temazepam (Restoril) 15 mg HSPRN PRN ORAL Insomnia 05/19/18 21:30 05/26/18 21:29 05/19/18 22:51 GI: Plan Problems: (1) Acute pancreatitis (2) Acute recurrent pancreatitis (3) ANANTH (acute kidney injury) (4) Diarrhea (5) Vomiting (6) Dehydration Plan mild triglyceride elevation utox pending medication reviewed CLD, adv as tolerated send out stool studies, cdiff, O&P pain mgmt trend lipase ppi PO/IV hydration + electrolyte correction fu labs will consider colonoscopy wednesday if patient still has persistent diarrhea Discussed with Dr. Aguila. Thank you for this patient referral, we will follow. The patient was seen and examined at bedside and all new and available data was reviewed in the patients chart. I agree with the above findings, impression and plan. (Patient seen earlier today. Signature stamp does not reflect patient encounter time.). - MD Jannet MillsTuba City Regional Health Care CorporationHilario CLEANING May 20, 2018 13:30
[2018-05-20 16:00] VITALS: BP 106/65
--- NOTE | 2018-05-20 16:07 | History & Physical ---
History and Physical History & Physicial Nick Peck MD May 20, 2018 16:07
[2018-05-20 20:00] VITALS: BP 116/73
--- NOTE | 2018-05-20 23:30 | History and Physical Report ---
DATE OF ADMISSION: 05/19/2018 CHIEF COMPLAINT: Abdominal pain. HISTORY OF PRESENT ILLNESS: This is a 48-year-old female with past medical history significant for recent history of gallstone pancreatitis, status post cholecystectomy about a month ago, history of hypertension, dyslipidemia, and C-sections x3, who was presented to the hospital complaining about abdominal pain. The patient stated that the pain is mostly epigastric pain over the past two days, the same kind of pain that she had about a month ago, and it radiates to the back. She complained about some nausea and diarrhea. She denies any coffee-ground emesis or hemoptysis. Shortly after initial evaluation, the patient was admitted to the hospital with acute pancreatitis. PAST MEDICAL HISTORY AND PAST SURGICAL HISTORY: As above. History of gallstone pancreatitis, status post cholecystectomy, hypertension, dyslipidemia, and x3. MEDICATIONS AT HOME: Please refer to medication reconciliation. ALLERGIES: No known drug allergies. SOCIAL HISTORY: Denies any smoking, alcohol, or drugs. FAMILY HISTORY: Father with lung cancer. REVIEW OF SYSTEMS: Mostly as above. Denies any dysuria, frequency, or hematuria. Denies any hemoptysis or hematochezia. Denies any suicidal or homicidal ideation. PHYSICAL EXAMINATION: VITAL SIGNS: On admission, temperature 98.6 degrees, pulse of 121, respirations 20, and blood pressure 128/86. GENERAL: The patient is awake, responsive, in no acute distress. HEAD AND NECK: Pupils equal and reactive to light. Extraocular movements intact. Neck was supple. No JVD. LUNGS: Clear. No wheeze or rales. HEART: S1 and S2. Regular rhythm. Tachycardic. ABDOMEN: Soft and nondistended. Tender in the mid abdominal area. No rebound tenderness. Mildly obese. EXTREMITIES: No cyanosis, clubbing, or edema. NEUROLOGIC: Cranial nerves II through XII are grossly intact. Moves all four extremities. Gait is intact. RECTAL: Refused and deferred. GENITOURINARY: Refused and deferred. LABORATORY DATA: On admission from the ER, WBC of 5.6, hemoglobin of 14, hematocrit of 42, platelet is 262,000. Sodium 135, potassium 4.2, chloride 99, bicarbonate 21, BUN 15, and creatinine 0.8, glucose is 102, and calcium is 10.2. AST of 61, ALT of 48, alkaline phosphatase of 143, total protein is 8.7. Triglycerides 229. Lipase is 878. PTT of 28. Urine is +2 protein, +3 ketones, and +2 leukocytes. Urine drug screen positive for the opioids as well as benzodiazepines, no alcohol. CT scan of the abdomen was done and shows mild pancreatitis in the pancreatic head. ASSESSMENT: 1. Epigastric pain, most likely secondary to acute pancreatitis. 2. Dehydration. 3. History of gallstone pancreatitis status post cholecystectomy. 4. Hypertension. 5. Dyslipidemia. PLAN: Admit the patient to medical/surgical. We will start the patient on clear-liquid diet, IV hydration, pain medication. Follow up with GI consultation, Dr. Aguila. Code status, Full Code. DVT prophylaxis, SCD. Nick Peck M.D. DR: DEANNE JOB#: [id number] CC:
[2018-05-21] VITALS: BP 89/61
[2018-05-21 04:00] VITALS: BP 99/64
[2018-05-21] MEDS: D5 1/2NS 1,000 ML IV SCH ×3 (04:20→18:00)
[2018-05-21 06:39] LABS: HEMATOCRIT 35.5 % (37.0-47.0); HEMOGLOBIN 11.4 G/DL (12.0-16.0); MEAN CORPUSCULAR VOLUME 96 FL (80-99); PLATELET COUNT 235 K/UL (150-450); RED BLOOD COUNT 3.69 M/UL (4.20-5.40); WHITE BLOOD COUNT 3.3 K/UL (4.8-10.8)
[2018-05-21 06:50] LABS: ALANINE AMINOTRANSFERASE 34 U/L (12-78); ALBUMIN 3.4 G/DL (3.4-5.0); ALBUMIN/GLOBULIN RATIO 0.9 (1.0-2.7); ALKALINE PHOSPHATASE 109 U/L (46-116); AMYLASE 64 U/L (25-115); ANION GAP 14 mmol/L (5-15); ASPARTATE AMINO TRANSFERASE 37 U/L (15-37); BILIRUBIN,TOTAL 0.5 MG/DL (0.2-1.0); BLOOD UREA NITROGEN 9 mg/dL (7-18); CALCIUM 9.4 MG/DL (8.5-10.1); CARBON DIOXIDE 23 MMOL/L (21-32); CHLORIDE 103 MMOL/L (98-107); CREATININE 0.7 MG/DL (0.55-1.30); PHOSPHORUS 4.5 MG/DL (2.5-4.9); POTASSIUM 3.5 MMOL/L (3.5-5.1); SODIUM 140 MMOL/L (136-145)
[2018-05-21 08:00] VITALS: BP 99/68
[2018-05-21] MEDS: Heparin 5000 units/ml inj SUBQ SCH ×2 (08:51→20:30)
[2018-05-21 12:00] VITALS: BP 95/55
[2018-05-21] MEDS ORDERED: D5 1/2NS 1000ml IV ONE (13:15)
--- NOTE | 2018-05-21 13:56 | Internal Med Progress Note ---
Subjective Date of Service: May 21, 2018 Physician Name Errol Stroud Attending Physician Nick Peck MD Current Medications Medications (Trade) Dose Ordered Sig/Kash Route PRN Reason Start Time Stop Time Status Last Admin Dose Admin Acetaminophen (Tylenol) 650 mg Q4H PRN ORAL fever 05/19/18 21:30 06/18/18 21:29 Al Hydroxide/Mg Hydroxide (Mylanta II) 30 ml Q6H PRN ORAL dyspepsia 05/19/18 21:30 06/18/18 21:29 Dextrose (Dextrose 50%) 25 ml Q30M PRN IV Hypoglycemia 05/19/18 21:30 06/18/18 21:29 Dextrose (Dextrose 50%) 50 ml Q30M PRN IV Hypoglycemia 05/19/18 21:30 06/18/18 21:29 Dextrose/Sodium Chloride 1,000 ml @ 75 mls/hr [id number] IV 05/19/18 21:17 06/18/18 21:16 05/21/18 04:20 Diphenhydramine HCl (Benadryl) 25 mg Q6H PRN ORAL Itching/Pruritis 05/19/18 21:30 06/18/18 21:29 Heparin Sodium (Porcine) (Heparin 5000 units/ml) 5,000 units EVERY 12 HOURS SUBQ 05/20/18 09:00 06/19/18 08:59 05/21/18 08:51 Hydromorphone HCl (Dilaudid) 2 mg Q3H PRN IVP Severe Pain (Pain Scale 7-10) 05/20/18 11:00 05/27/18 10:59 05/21/18 11:59 Iopamidol (Isovue-300 100ml) 100 ml NOW PRN INJ Radiology Procedure 05/19/18 18:00 Lorazepam (Ativan 2mg/ml 1ml) 1 mg Q4H PRN IV agitation 05/19/18 21:30 05/26/18 21:29 Metoclopramide HCl (Reglan) 10 mg Q6H PRN IVP severe nausea 05/19/18 21:30 06/18/18 21:29 Nitroglycerin (Ntg) 0.4 mg Q5M X 3 DOSES PRN SL Prn Chest Pain 05/19/18 21:30 06/18/18 21:29 Ondansetron HCl (Zofran) 4 mg Q6H PRN IVP Nausea & Vomiting 05/19/18 21:30 06/18/18 21:29 05/21/18 11:59 Polyethylene Glycol (Miralax) 17 gm HSPRN PRN ORAL Constipation 05/19/18 21:30 06/18/18 21:29 Promethazine HCl (Phenergan) 12.5 mg Q6H PRN IM refractory nausea/vomiting 05/19/18 21:45 06/18/18 21:44 Temazepam (Restoril) 15 mg HSPRN PRN ORAL Insomnia 05/19/18 21:30 05/26/18 21:29 05/20/18 21:31 Allergies: Coded Allergies: No Known Allergies (Unverified , 05/13/13) ROS Limited/Unobtainable: No Constitutional: Reports: no symptoms HEENT: Reports: no symptoms Cardiovascular: Reports: no symptoms Respiratory: Reports: no symptoms Gastrointestinal/Abdominal: Reports: abdominal pain Genitourinary: Reports: no symptoms Neurologic/Psychiatric: Reports: no symptoms Subjective 48 YO F admitted with epigastric pain. Now pancreatitis. Cover for Int Med-Dr Peck Objective Last Vital Signs Date Time Temp Pulse Resp B/P (MAP) Pulse Ox O2 Delivery O2 Flow Rate FiO2 05/21/18 12:29 97.5 05/21/18 08:25 Room Air 05/21/18 08:00 87 18 99/68 (78) 05/21/18 04:00 99 General Appearance: WD/WN, no apparent distress, alert EENT: PERRL/EOMI, normal ENT inspection Neck: non-tender, normal alignment, supple, normal inspection Cardiovascular: normal peripheral pulses, normal rate, regular rhythm, no gallop/murmur, no JVD Respiratory/Chest: chest wall non-tender, lungs clear, normal breath sounds, no respiratory distress, no accessory muscle use Abdomen: soft, decreased bowel sounds, guarding, tender Extremities: normal range of motion, non-tender Neurologic: social work coordinator II-XII grossly normal, no motor/sensory deficits Skin: normal pigmentation, warm/dry Laboratory Tests Test 05/21/18 05:40 White Blood Count 3.3 K/UL (4.8-10.8) L Red Blood Count 3.69 M/UL (4.20-5.40) L Hemoglobin 11.4 G/DL (12.0-16.0) L Hematocrit 35.5 % (37.0-47.0) L Mean Corpuscular Volume 96 FL (80-99) Mean Corpuscular Hemoglobin 30.8 PG (27.0-31.0) Mean Corpuscular Hemoglobin Concent 32.0 G/DL (32.0-36.0) Red Cell Distribution Width 15.0 % (11.6-14.8) H Platelet Count 235 K/UL (150-450) Mean Platelet Volume 6.7 FL (6.5-10.1) Neutrophils (%) (Auto) % (45.0-75.0) Lymphocytes (%) (Auto) % (20.0-45.0) Monocytes (%) (Auto) % (1.0-10.0) Eosinophils (%) (Auto) % (0.0-3.0) Basophils (%) (Auto) % (0.0-2.0) Differential Total Cells Counted 100 Neutrophils % (Manual) 41 % (45-75) L Lymphocytes % (Manual) 40 % (20-45) Monocytes % (Manual) 11 % (1-10) H Eosinophils % (Manual) 8 % (0-3) H Basophils % (Manual) 0 % (0-2) Band Neutrophils 0 % (0-8) Platelet Estimate Adequate Platelet Morphology Normal Anisocytosis 1+ Erythrocyte Sedimentation Rate 22 MM/HR (0-20) H Sodium Level 140 MMOL/L (136-145) Potassium Level 3.5 MMOL/L (3.5-5.1) Chloride Level 103 MMOL/L (98-107) Carbon Dioxide Level 23 MMOL/L (21-32) Anion Gap 14 mmol/L (5-15) Blood Urea Nitrogen 9 mg/dL (7-18) Creatinine 0.7 MG/DL (0.55-1.30) Estimat Glomerular Filtration Rate > 60 mL/min (>60) Glucose Level 117 MG/DL (74-106) H Calcium Level 9.4 MG/DL (8.5-10.1) Phosphorus Level 4.5 MG/DL (2.5-4.9) Magnesium Level 1.6 MG/DL (1.8-2.4) L Total Bilirubin 0.5 MG/DL (0.2-1.0) Aspartate Amino Transf (AST/SGOT) 37 U/L (15-37) Alanine Aminotransferase (ALT/SGPT) 34 U/L (12-78) Alkaline Phosphatase 109 U/L (46-116) C-Reactive Protein, Quantitative 0.5 mg/dL (0.00-0.90) Total Protein 7.2 G/DL (6.4-8.2) Albumin 3.4 G/DL (3.4-5.0) Globulin 3.8 g/dL Albumin/Globulin Ratio 0.9 (1.0-2.7) L Amylase Level 64 U/L (25-115) Lipase 294 U/L (73-393) Microbiology Date/Time Source Procedure Growth Status 05/20/18 14:27 Stool Clostridium difficile Toxin Assay - Final Complete 05/19/18 18:50 Urine,Clean Catch Urine Culture - Final Mixed Gram Positive Organism Complete Intake and Output 05/20/18 05/21/18 19:00 07:00 Intake Total 960 ml 75 ml Balance 960 ml 75 ml Intake Oral 960 ml IV Total 75 ml # Voids 5 # Bowel Movements 1 Assessment/Plan Problem List: (1) Hypercholesteremia (2) Acute pancreatitis Assessment & Plan: H/O gallstone pancreatitits. See GI note. Tolerating regular diet (3) Hypertension (4) Hypokalemia Assessment & Plan: Replace potassium (5) Vomiting Assessment & Plan: Continue zofran (6) Diarrhea Status: tolerating diet Errol Stroud MD May 21, 2018 13:56
[2018-05-21 16:00] VITALS: BP 120/72
[2018-05-21] MEDS ORDERED: Gadavist 7.5mMol/7.5ml vial IV PRN (17:57)
[2018-05-21 20:00] VITALS: BP 130/72
--- NOTE | 2018-05-21 22:15 | Consultation ---
DATE OF CONSULTATION: 05/21/2018 GASTROENTEROLOGY CONSULTATION CONSULTING PHYSICIAN: Yuridia Menard M.D. REFERRING PHYSICIAN: Nick Peck M.D. CHIEF COMPLAINT: I was asked to see this patient by Dr. Nick Peck for evaluation of pancreatitis. HISTORY OF PRESENT ILLNESS: The patient is a pleasant 48-year-old woman, who came to the hospital two days ago due to abdominal pain. 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 She was placed on clear liquids and her lipase today is normal. She wants to advance her diet. She has had a past history of gallstone pancreatitis and she underwent cholecystectomy. She has hypertension and dyslipidemia and pathology as outlined below. She feels better today than when she had a month ago with the pancreatitis. PAST MEDICAL HISTORY: History of gallstone pancreatitis status cholecystectomy, hypertension, and dyslipidemia. PAST SURGICAL HISTORY: x3. FAMILY HISTORY: Positive for lung cancer in her father. SOCIAL HISTORY: The patient does not smoke or drink alcohol. ALLERGIES: None. REVIEW OF SYSTEMS: Otherwise negative. PHYSICAL EXAMINATION: GENERAL: Obese woman, seen in her room. HEENT: Normocephalic and atraumatic. Sclerae are anicteric. Oropharynx is clear. NECK: Supple. CHEST: Clear to auscultation. CARDIOVASCULAR: Revealed regular rate. ABDOMEN: Soft, with mild increased abdominal tenderness to palpation. EXTREMITIES: Revealed no edema. LABORATORY DATA AND IMAGING STUDIES: Noted. ASSESSMENT: This patient presents with recurrence of pancreatitis, unclear etiology. The patient had an abdominal ultrasound imaging, which was unrevealing as well as a CT scan was done, which showed evidence of mild pancreatitis in the pancreatic head. There is significant improvement since the last evaluation. The patient's diet can be increased at this point since her lipase is normal and she is hungry. MRCP was ordered to evaluate common bile duct stones. RECOMMENDATIONS: Per above discussion and per orders written in the chart. Thank you for asking me to participate in the care of this patient. Yuridia Menard M.D. DR: RACQUEL JOB#: [id number] CC: CLAY
[2018-05-22] VITALS: BP 119/79
[2018-05-22] MEDS: D5 1/2NS 1,000 ML IV SCH ×2 (02:39→16:40)
[2018-05-22 04:00] VITALS: BP 103/67
[2018-05-22 08:00] VITALS: BP 116/73
[2018-05-22 08:31] LABS: BASOPHILS % (AUTO) 1.2 % (0.0-2.0); EOSINOPHILS % (AUTO) 7.3 % (0.0-3.0); HEMATOCRIT 33.7 % (37.0-47.0); HEMOGLOBIN 10.7 G/DL (12.0-16.0); LYMPHOCYTES % (AUTO) 35.8 % (20.0-45.0); MEAN CORPUSCULAR VOLUME 96 FL (80-99); MONOCYTES % (AUTO) 11.5 % (1.0-10.0); NEUTROPHILS % (AUTO) 44.2 % (45.0-75.0); PLATELET COUNT 232 K/UL (150-450); RED BLOOD COUNT 3.52 M/UL (4.20-5.40); RED CELL DISTRIBUTION WIDTH 15.1 % (11.6-14.8); WHITE BLOOD COUNT 3.9 K/UL (4.8-10.8)
[2018-05-22] MEDS ORDERED: Tubing IV Secondary IV ONE (08:39)
[2018-05-22] MEDS ORDERED: D5 1/2NS 1000ml IV ONE (08:39)
[2018-05-22 08:43] LABS: ANION GAP 8 mmol/L (5-15); BLOOD UREA NITROGEN 5 mg/dL (7-18); CALCIUM 9.1 MG/DL (8.5-10.1); CARBON DIOXIDE 24 MMOL/L (21-32); CHLORIDE 108 MMOL/L (98-107); CREATININE 0.7 MG/DL (0.55-1.30); POTASSIUM 3.6 MMOL/L (3.5-5.1); SODIUM 140 MMOL/L (136-145)
[2018-05-22] MEDS: Heparin 5000 units/ml inj SUBQ SCH ×2 (08:48→20:12)
--- NOTE | 2018-05-22 10:57 | General Progress Note ---
Assessment/Plan Assessment/Plan Assessment - h/o gallstone pancreatitis - s/p cholecystectomy - recurrent pancreatitis - HTN - dyslipidemia Recommendations - po as tolerated - follow exam and symptoms - MRCP in am Subjective Allergies: Coded Allergies: No Known Allergies (Unverified , 05/13/13) Subjective still with some abdominal pain limited po intake advised re MRCP for tomorrow Objective Last 24 Hour Vital Signs Date Time Temp Pulse Resp B/P (MAP) Pulse Ox O2 Delivery O2 Flow Rate FiO2 05/22/18 09:00 Room Air 05/22/18 08:00 98.3 93 21 116/73 (87) 96 05/22/18 04:00 98.7 80 18 103/67 (79) 100 05/22/18 00:00 98.5 99 18 119/79 (92) 96 05/21/18 21:00 Room Air 05/21/18 20:00 97.8 94 18 130/72 (91) 98 05/21/18 16:50 98.0 05/21/18 16:00 98.0 87 18 120/72 (88) 100 05/21/18 12:00 98.0 87 19 95/55 (68) 100 Intake and Output 05/21/18 05/22/18 18:59 06:59 Intake Total 1325 ml 1700 ml Balance 1325 ml 1700 ml Intake Oral 500 ml 800 ml IV Total 825 ml 900 ml # Voids 6 3 # Bowel Movements 1 Laboratory Tests 05/22/18 06:40: White Blood Count 3.9L, Red Blood Count 3.52L, Hemoglobin 10.7L, Hematocrit 33.7L, Mean Corpuscular Volume 96, Mean Corpuscular Hemoglobin 30.3, Mean Corpuscular Hemoglobin Concent 31.6L, Red Cell Distribution Width 15.1H, Platelet Count 232, Mean Platelet Volume 6.4L, Neutrophils (%) (Auto) 44.2L, Lymphocytes (%) (Auto) 35.8, Monocytes (%) (Auto) 11.5H, Eosinophils (%) (Auto) 7.3H, Basophils (%) (Auto) 1.2 05/22/18 07:55: Sodium Level 140, Potassium Level 3.6, Chloride Level 108H, Carbon Dioxide Level 24, Anion Gap 8, Blood Urea Nitrogen 5L, Creatinine 0.7, Estimat Glomerular Filtration Rate > 60, Glucose Level 98, Calcium Level 9.1, Lipase 277 Height (Feet): 5 Height (Inches): 5.00 Weight (Pounds): 180 Objective Obese AA woman NCAT Supple CTA RRR abd soft ND, (+) epigastric TTP no edema nonfocal uYridia Menard MD May 22, 2018 10:56
[2018-05-22 12:00] VITALS: BP 124/78
--- NOTE | 2018-05-22 15:13 | Internal Med Progress Note ---
Subjective Date of Service: May 22, 2018 Physician Name Errol Stroud Attending Physician Nick Peck MD Current Medications Medications (Trade) Dose Ordered Sig/Kash Route PRN Reason Start Time Stop Time Status Last Admin Dose Admin Acetaminophen (Tylenol) 650 mg Q4H PRN ORAL fever 05/19/18 21:30 06/18/18 21:29 Al Hydroxide/Mg Hydroxide (Mylanta II) 30 ml Q6H PRN ORAL dyspepsia 05/19/18 21:30 06/18/18 21:29 Dextrose (Dextrose 50%) 25 ml Q30M PRN IV Hypoglycemia 05/19/18 21:30 06/18/18 21:29 Dextrose (Dextrose 50%) 50 ml Q30M PRN IV Hypoglycemia 05/19/18 21:30 06/18/18 21:29 Dextrose/Sodium Chloride 1,000 ml @ 75 mls/hr [id number] IV 05/19/18 21:17 06/18/18 21:16 05/22/18 02:39 Diphenhydramine HCl (Benadryl) 25 mg Q6H PRN ORAL Itching/Pruritis 05/19/18 21:30 06/18/18 21:29 Gadobutrol (Gadavist) 7.5 mmol ONCE PRN IV RADIOLOGY USE 05/21/18 17:57 05/23/18 23:59 Heparin Sodium (Porcine) (Heparin 5000 units/ml) 5,000 units EVERY 12 HOURS SUBQ 05/20/18 09:00 06/19/18 08:59 05/22/18 08:48 Hydromorphone HCl (Dilaudid) 2 mg Q3H PRN IVP Severe Pain (Pain Scale 7-10) 05/20/18 11:00 05/27/18 10:59 05/22/18 13:40 Iopamidol (Isovue-300 100ml) 100 ml NOW PRN INJ Radiology Procedure 05/19/18 18:00 Lorazepam (Ativan 2mg/ml 1ml) 1 mg Q4H PRN IV agitation 05/19/18 21:30 05/26/18 21:29 Metoclopramide HCl (Reglan) 10 mg Q6H PRN IVP severe nausea 05/19/18 21:30 06/18/18 21:29 Nitroglycerin (Ntg) 0.4 mg Q5M X 3 DOSES PRN SL Prn Chest Pain 05/19/18 21:30 06/18/18 21:29 Ondansetron HCl (Zofran) 4 mg Q6H PRN IVP Nausea & Vomiting 05/19/18 21:30 06/18/18 21:29 05/22/18 13:40 Polyethylene Glycol (Miralax) 17 gm HSPRN PRN ORAL Constipation 05/19/18 21:30 06/18/18 21:29 Promethazine HCl (Phenergan) 12.5 mg Q6H PRN IM refractory nausea/vomiting 05/19/18 21:45 06/18/18 21:44 Temazepam (Restoril) 15 mg HSPRN PRN ORAL Insomnia 05/19/18 21:30 05/26/18 21:29 05/21/18 20:31 Allergies: Coded Allergies: No Known Allergies (Unverified , 05/13/13) ROS Limited/Unobtainable: No Constitutional: Reports: no symptoms HEENT: Reports: no symptoms Cardiovascular: Reports: no symptoms Respiratory: Reports: no symptoms Gastrointestinal/Abdominal: Reports: abdominal pain Genitourinary: Reports: no symptoms Neurologic/Psychiatric: Reports: no symptoms Subjective 48 YO F admitted with epigastric pain. Now pancreatitis. Cover for Int Med-Dr Peck Objective Last Vital Signs Date Time Temp Pulse Resp B/P (MAP) Pulse Ox O2 Delivery O2 Flow Rate FiO2 05/22/18 12:00 98.2 85 20 124/78 (93) 97 05/22/18 09:00 Room Air Laboratory Tests Test 05/22/18 06:40 05/22/18 07:55 White Blood Count 3.9 K/UL (4.8-10.8) L Red Blood Count 3.52 M/UL (4.20-5.40) L Hemoglobin 10.7 G/DL (12.0-16.0) L Hematocrit 33.7 % (37.0-47.0) L Mean Corpuscular Volume 96 FL (80-99) Mean Corpuscular Hemoglobin 30.3 PG (27.0-31.0) Mean Corpuscular Hemoglobin Concent 31.6 G/DL (32.0-36.0) L Red Cell Distribution Width 15.1 % (11.6-14.8) H Platelet Count 232 K/UL (150-450) Mean Platelet Volume 6.4 FL (6.5-10.1) L Neutrophils (%) (Auto) 44.2 % (45.0-75.0) L Lymphocytes (%) (Auto) 35.8 % (20.0-45.0) Monocytes (%) (Auto) 11.5 % (1.0-10.0) H Eosinophils (%) (Auto) 7.3 % (0.0-3.0) H Basophils (%) (Auto) 1.2 % (0.0-2.0) Sodium Level 140 MMOL/L (136-145) Potassium Level 3.6 MMOL/L (3.5-5.1) Chloride Level 108 MMOL/L (98-107) H Carbon Dioxide Level 24 MMOL/L (21-32) Anion Gap 8 mmol/L (5-15) Blood Urea Nitrogen 5 mg/dL (7-18) L Creatinine 0.7 MG/DL (0.55-1.30) Estimat Glomerular Filtration Rate > 60 mL/min (>60) Glucose Level 98 MG/DL (74-106) Calcium Level 9.1 MG/DL (8.5-10.1) Lipase 277 U/L (73-393) Microbiology Date/Time Source Procedure Growth Status 05/20/18 14:27 Stool Ova and Parasites - Final Complete 05/20/18 14:27 Stool Ova and Parasite Result 1 - Final Complete 05/20/18 14:27 Stool Clostridium difficile Toxin Assay - Final Complete 05/19/18 18:50 Urine,Clean Catch Urine Culture - Final Mixed Gram Positive Organism Complete Intake and Output 05/21/18 05/22/18 19:00 07:00 Intake Total 1325 ml 1625 ml Balance 1325 ml 1625 ml Intake Oral 500 ml 800 ml IV Total 825 ml 825 ml # Voids 6 3 # Bowel Movements 1 Objective General Appearance: WD/WN, no apparent distress, alert EENT: PERRL/EOMI, normal ENT inspection Neck: non-tender, normal alignment, supple, normal inspection Cardiovascular: normal peripheral pulses, normal rate, regular rhythm, no gallop/murmur, no JVD Respiratory/Chest: chest wall non-tender, lungs clear, normal breath sounds, no respiratory distress, no accessory muscle use Abdomen: soft, decreased bowel sounds, guarding, tender Extremities: normal range of motion, non-tender Neurologic: silver buffer II-XII grossly normal, no motor/sensory deficits Skin: normal pigmentation, warm/dry Assessment/Plan Problem List: (1) Hypercholesteremia (2) Acute pancreatitis Assessment & Plan: H/O gallstone pancreatitits. See GI note. Tolerating regular diet MRCP on 05/23/18-see GI note (3) Hypertension (4) Hypokalemia Assessment & Plan: Replace potassium (5) Vomiting Assessment & Plan: Continue zofran (6) Diarrhea Errol Stroud MD May 22, 2018 15:13
[2018-05-22 16:00] VITALS: BP 130/70
[2018-05-22 20:00] VITALS: BP 129/90
[2018-05-23] VITALS: BP 132/80
[2018-05-23 04:00] VITALS: BP 120/80
[2018-05-23] MEDS: D5 1/2NS 1,000 ML IV SCH (05:10)
[2018-05-23 07:38] LABS: HEMATOCRIT 34.6 % (37.0-47.0); HEMOGLOBIN 11.6 G/DL (12.0-16.0); MEAN CORPUSCULAR VOLUME 95 FL (80-99); PLATELET COUNT 232 K/UL (150-450); RED BLOOD COUNT 3.63 M/UL (4.20-5.40); RED CELL DISTRIBUTION WIDTH 14.9 % (11.6-14.8); WHITE BLOOD COUNT 3.4 K/UL (4.8-10.8)
[2018-05-23 07:53] LABS: ANION GAP 8 mmol/L (5-15); BLOOD UREA NITROGEN 3 mg/dL (7-18); CALCIUM 9.1 MG/DL (8.5-10.1); CARBON DIOXIDE 24 MMOL/L (21-32); CHLORIDE 107 MMOL/L (98-107); CREATININE 0.6 MG/DL (0.55-1.30); POTASSIUM 3.5 MMOL/L (3.5-5.1); SODIUM 139 MMOL/L (136-145)
[2018-05-23 08:00] VITALS: BP 117/80
[2018-05-23] MEDS: Heparin 5000 units/ml inj SUBQ SCH (08:24)
--- NOTE | 2018-05-23 11:29 | GI Progress Note ---
Assessment/Plan Problems: (1) Acute pancreatitis ICD Codes: K85.90 - Acute pancreatitis without necrosis or infection, unspecified SNOMED: 387829863 (2) Diarrhea ICD Codes: R19.7 - Diarrhea, unspecified SNOMED: 56111653 (3) Dehydration ICD Codes: E86.0 - Dehydration SNOMED: 58880633 (4) Vomiting ICD Codes: R11.10 - Vomiting, unspecified SNOMED: 995641778 Status: stable Status Narrative Discussed with Dr. Aguila. Assessment/Plan Assessment - h/o gallstone pancreatitis - s/p cholecystectomy - recurrent pancreatitis - HTN - dyslipidemia Recommendations - po as tolerated - follow exam and symptoms - MRCP today - will follow with additional recs The patient was seen and examined at bedside and all new and available data was reviewed in the patients chart. I agree with the above findings, impression and plan. (Patient seen earlier today. Signature stamp does not reflect patient encounter time.). - John Aguila MD Subjective Gastrointestinal/Abdominal: Reports: no symptoms Objective Last 24 Hour Vital Signs Date Time Temp Pulse Resp B/P (MAP) Pulse Ox O2 Delivery O2 Flow Rate FiO2 05/23/18 08:00 98.0 93 21 117/80 (92) 99 05/23/18 04:00 97.8 82 20 120/80 (93) 95 05/23/18 02:41 98.4 05/23/18 00:00 98.4 85 20 132/80 (97) 98 05/22/18 21:00 Room Air 05/22/18 20:00 99.1 83 20 129/90 (103) 98 05/22/18 16:00 98.2 83 20 130/70 (90) 100 05/22/18 12:00 98.2 85 20 124/78 (93) 97 Intake and Output 05/22/18 05/23/18 18:59 06:59 Intake Total 1490 ml 1300 ml Balance 1490 ml 1300 ml Intake Oral 740 ml 400 ml IV Total 750 ml 900 ml # Voids 3 2 Laboratory Tests Test 05/23/18 07:18 White Blood Count 3.4 K/UL (4.8-10.8) L Red Blood Count 3.63 M/UL (4.20-5.40) L Hemoglobin 11.6 G/DL (12.0-16.0) L Hematocrit 34.6 % (37.0-47.0) L Mean Corpuscular Volume 95 FL (80-99) Mean Corpuscular Hemoglobin 32.0 PG (27.0-31.0) H Mean Corpuscular Hemoglobin Concent 33.6 G/DL (32.0-36.0) Red Cell Distribution Width 14.9 % (11.6-14.8) H Platelet Count 232 K/UL (150-450) Mean Platelet Volume 6.1 FL (6.5-10.1) L Neutrophils (%) (Auto) % (45.0-75.0) Lymphocytes (%) (Auto) % (20.0-45.0) Monocytes (%) (Auto) % (1.0-10.0) Eosinophils (%) (Auto) % (0.0-3.0) Basophils (%) (Auto) % (0.0-2.0) Differential Total Cells Counted 100 Neutrophils % (Manual) 47 % (45-75) Lymphocytes % (Manual) 32 % (20-45) Monocytes % (Manual) 14 % (1-10) H Eosinophils % (Manual) 6 % (0-3) H Basophils % (Manual) 1 % (0-2) Band Neutrophils 0 % (0-8) Platelet Estimate Adequate Platelet Morphology Normal Red Blood Cell Morphology Normal Sodium Level 139 MMOL/L (136-145) Potassium Level 3.5 MMOL/L (3.5-5.1) Chloride Level 107 MMOL/L (98-107) Carbon Dioxide Level 24 MMOL/L (21-32) Anion Gap 8 mmol/L (5-15) Blood Urea Nitrogen 3 mg/dL (7-18) L Creatinine 0.6 MG/DL (0.55-1.30) Estimat Glomerular Filtration Rate > 60 mL/min (>60) Glucose Level 103 MG/DL (74-106) Calcium Level 9.1 MG/DL (8.5-10.1) Height (Feet): 5 Height (Inches): 5.00 Weight (Pounds): 180 General Appearance: WD/WN, no apparent distress, alert Cardiovascular: normal rate Respiratory/Chest: normal breath sounds, no respiratory distress Abdominal Exam: normal bowel sounds, non tender, soft Extremities: normal range of motion, non-tender Power,Ivet-Elmer BULLARD OPERATOR May 23, 2018 11:29
--- NOTE | 2018-05-23 11:46 | Diagnostic Imaging Report ---
Indication: Technique: MRI of the abdomen was performed in a 1.5 Eileen magnet. Pulse sequences obtained include coronal and axial T2 single shot fast spin echo breathhold and respiratory gated coronal T2 3-D M.R.C.P.; this data set was displayed in different projections or MIPs. In addition, multiple coronal oblique thin T2 weighted, fat saturated SE sequences obtained through the CBD. Dynamic gadolinium-enhanced axial T1 lava performed during multiple phases of enhancement. Pre-contrast T1 lava also done. Comparison: MRCP April 19, 2017, CT abdomen pelvis 05/19/2018, ultrasound abdomen Findings: Interval cholecystectomy noted. The biliary ducts are normal in caliber. There is no evidence of a filling defect or significant biliary ductal dilatation. Findings of pancreatitis are better appreciated on recent CT. There is a small cyst measuring 1 cm in the area of the pancreatic head not previously demonstrated. The previous MRCP was significantly degraded by breathing motion. The current study is less severely affected by breathing motion although there is still some motion present. It is possible the 1 cm lesion is new. There is no abnormal enhancement within the liver. There are multiple small cysts within both kidneys again demonstrated. There is no free fluid. There is no evidence of abscess or phlegmon. Normal enhancement of the pancreas demonstrated. No evidence of pancreatic necrosis. IMPRESSION: Mild pancreatitis in the area of the pancreatic head. Considerable improvement since the previous examination from April 2017. No evidence of abscess. No evidence of pancreatic necrosis with normal enhancement of the pancreas. Status post interval cholecystectomy. 1 cm cyst in the pancreatic head. Due to the suboptimal imaging on the prior occasion, not certain if this cyst is new. This may be a small pseudocyst given the history pancreatitis. This may be a incidental IPMN. Follow-up suggested.
[2018-05-23 12:00] VITALS: BP 135/93
[2018-05-23] MEDS ORDERED: D5 1/2NS 1000ml IV ONE (14:03)
--- NOTE | 2018-05-24 11:00 | Discharge Summary ---
Discharge Summary Discharge Summary _ DATE OF ADMISSION: 05/19/2018 DATE OF DISCHARGE: 05/23/2018 REASON FOR ADMISSION: 48 years old female with past medical history of hypertension, recent gallstone pancreatitis, status post cholecystectomy, about a month ago, dyslipidemia, presented to emergency department complaining of abdominal pain. Patient also reported nausea and diarrhea . Upon evaluation laboratory workup revealed no leukocytosis ,stable hemoglobin and hematocrit, stable electrolytes and renal parameters . AST 61 ALT in normal range. Lipase 878. Urinalysis with evidence of pyuria and moderate bacteria. CT of the abdomen and pelvis revealed evidence of mild pancreatitis in the area of the pancreatic head. Abdominal ultrasound revealed no acute findings, status post cholecystectomy. Patient admitted with diagnosis of epigastric pain, likely related to acute pancreatitis, dehydration, history of gallstone pancreatitis status post cholecystectomy, hypertension, dyslipidemia. CONSULTANTS: pulmonary commissary representative Dr. Cabezas GI specialist Dr. Aguila [facility] COURSE: Patient admitted to medical surgical floor. Patient started on IV fluids and clear liquid diet. Pain management was addressed. Antiemetics provided as needed. GI consult was requested. GI specialist seen and evaluated patient. MRCP of abdomen revealed mild pancreatitis in the area of the pancreatic head. Consider improvement since the previous examination on April 2017. No evidence of abscess. No evidence of pancreatic necrosis. 1 cm cyst in the pancreatic head noted, may be a small pseudocyst , given the history of pancreatitis. Given the suboptimal imaging on the prior occasion, not cleared if the cyst was new. Recommended follow-up. Urine culture revealed mixed gram-positive organisms. Stool culture was negative. Stool for C. difficile was negative. Stool for ova and parasites was negative. Renal parameters electrolytes were closely monitored. Electrolytes corrected as needed, specifically potassium and magnesium. Nephrotoxins were avoided. Lipase was trending and prior to discharge 277. AST down to 37. Nausea vomiting and diarrhea resolved. Pain management was addressed, and pain was controlled. DVT prophylaxis provided. Blood pressure remained stable, no need for antihypertensive at this time. Patient clinically improved and was stable for discharge home . Outpatient follow-up with a GI specialist FINAL DIAGNOSES: Acute pancreatitis History of gallstone pancreatitis , status post cholecystectomy Dehydration Hypokalemia Hypertension Dyslipidemia DISCHARGE MEDICATIONS: See Medication Reconciliation list. DISCHARGE INSTRUCTIONS: Patient was discharged home . Follow up with primary care provider in one week. I have been assigned to dictate discharge summary for this account. I was not involved in the patient's management. Phoebe Shearer NP May 24, 2018 11:00
== END 2018-05-23 14:04 | disposition home or self-care (01) | DRG 282 ==
LOC: EMR 17:50 → EDBEDREQ 21:12 → 3E 21:33
DX: K85.90 Acute pancreatitis without necrosis or infection, unspecified (principal); N17.9 Acute kidney failure, unspecified; E78.5 Hyperlipidemia, unspecified; E86.0 Dehydration; E87.6 Hypokalemia; I10 Essential (primary) hypertension
CPT/HCPCS: 36415; 74177; 74183; 76700; 80048; 80053; 80061; 80307; 80329; 81003; 82150; 83690; 83735; 84100; 85007; 85025; 85651; 85730; 86140; 87045; 87086; 87324; 96361; 96374; 96375; 96376; 99285; A9585; J2405